=== PATIENT | female | born 1990 | race Caucasian/White ===

== ENCOUNTER 2018-01-05 09:19 | Emergency (ER) | payer MEDICAID, OTHER ==
[2018-01-05] MEDS ORDERED: Acetaminophen TAB* 325 MG PO ONE (10:58)
[2018-01-05] MEDS ORDERED: Ibuprofen TAB* 600 MG PO ONE (11:00)
--- NOTE | 2018-01-05 11:10 | ED ---
Lower Extremity - HPI Summary HPI Summary: This patient is a 27 year old F presenting to [facility] with a chief complaint of right lower leg pain since 04:00 this morning. Patient denies falling. Pt notes that she broke her right tibia on 11/09/17 and is worried she may have reinjured herself by walking without her boot on last night. The patient rates the pain 10 /10 in severity. Symptoms aggravated by putting pressure on her right leg. Symptoms alleviated by nothing. Patient reports left knee pain, swelling to her left ring finger, and rash to her left hand. Pt notes that she cannot remove her ring. Pt takes Wellbutrin and Xanax. - History of Current Complaint Chief Complaint: EDExtremityLower Stated Complaint: RIGHT FOOT INJURY, LEFT KNEE SWEELING , HAND SWELL Hx Obtained From: Patient Hx Last Menstrual Period: 05/08/13 Mechanism Of Injury: Unknown Onset of Pain: Hours, Prior to Arrival Onset/Duration: Still Present Severity Currently: Moderate Pain Intensity: 10 Pain Scale Used: 0-10 Numeric Timing: Constant Location: Is Discrete @ - right lower leg Associated Signs And Symptoms: Positive: Swelling - of left ring finger, Knee Pain - in left knee Aggravating Factor(s): Weight Bearing Alleviating Factor(s): Nothing - Allergies/Home Medications Allergies/Adverse Reactions: Allergies Allergy/AdvReac Type Severity Reaction Status Date / Time bee venom protein (honey bee) Allergy Anaphylatic Verified 01/05/18 11:40 Shock fentanyl Allergy Vomiting Verified 01/05/18 11:40 melon Allergy Severe cant Uncoded 01/05/18 11:40 breathe peanuts Allergy Severe breathing Uncoded 01/05/18 11:40 diff PMH/Surg Hx/FS Hx/Imm Hx Cardiovascular History: Denies: Hx Hypertension Respiratory History: Reports: Hx Asthma History: Reports: Hx Renal Disease - STATES ONE WORKING KIDNEY WORKS ON AND OFF - Surgical History Surgery Procedure, Year, and Place: polyps removed uterine; wisdom teeth; nasal reconstruction - Immunization History Immunizations Up to Date: Yes Infectious Disease History: No Infectious Disease History: Denies: History Other Infectious Disease, Traveled Outside the [place] in Last 30 Days - Social History Alcohol Use: Rare Substance Use Type: Reports: None Smoking Status (MU): Never Smoked Tobacco Review of Systems Negative: Fever, Chills Negative: Photophobia, Blurred Vision Negative: Ear Ache Negative: Chest Pain Negative: Cough Negative: Vomiting, Nausea, Other - negative bloody stool Negative: hematuria Musculoskeletal: Other - right lower leg pain, left knee pain Positive: Other - swelling in left ring finger Positive: Rash - redness in left hand Negative: Headache All Other Systems Reviewed And Are Negative: No Physical Exam - Summary Physical Exam Summary: Appearance: Alert, conversive, nontoxic appearing Skin: Warm, dry, no mottling, rash to dorsum of left hand, no contusions HEENT: EOMI, PERRL, moist mucous membranes Neck: No masses on the neck, supple Respiratory: Clear to auscultation, breath sounds present, no rales, no rhonchi , no wheezes Cardiovascular: RRR, pulses are symmetrical in both lower and upper extremities Abdomen: Soft, non-tender Bowel Sounds: Present Musculoskeletal: No CVA tenderness, no obvious deformity, moving all extremities in a grossly normal manner. Tender to inferior and lateral right lower leg. Tenderness with ROM. Full ROM with right knee. Swelling to left ring finger. Neurological: A&Ox3, CN II-XII Intact, moving all extremities symmetrically Psychiatric: Normal affect and mood Triage Information Reviewed: Yes Vital Signs On Initial Exam: Initial Vitals Temp Pulse Resp BP Pulse Ox 97.5 F 90 16 111/97 97 01/05/18 09:25 01/05/18 09:25 01/05/18 09:25 01/05/18 09:25 01/05/18 09:25 Vital Signs Reviewed: Yes Diagnostics - Vital Signs Vital Signs Temp Pulse Resp BP Pulse Ox 01/05/18 09:25 97.5 F 90 16 111/97 97 - Laboratory Lab Statement: Any lab studies that have been ordered have been reviewed, and results considered in the medical decision making process. - Radiology Right ankle XR Xray Interpretation: No Acute Changes - no acute osseous injury. Dr. Jim has reviewed this report. Radiology Interpretation Completed By: Radiologist Right lower leg XR Xray Interpretation: No Acute Changes - no acute osseous injury. Dr. Jim has reviewed this report. Radiology Interpretation Completed By: Radiologist Re-Evaluation - Re-Evaluation 1st re-eval Re-Evaluation Time: 12:11 Change: Unchanged Comment: Discussed imaging results with patient. Lower Extremity Course/Dx - Course Course Of Treatment: This patient is a 27 year old F reporting right lower leg pain, left knee pain, swelling to her left ring finger, and rash to her left hand. Patient broke her right tibia 11/09/17. Right ankle XR reveals, per radiologist, no acute osseous injury. RLE XR reveals, per radiologist, no acute osseous injury. ED physician has reviewed these radiology reports. In the ED course the patient was given ibuprofen and Tylenol. Patient will be discharged home with follow up from PCP. The patient is agreeable with this plan. - Diagnoses Provider Diagnoses: Ankle sprain Discharge - Sign-Out/Discharge Documenting (check all that apply): Patient Departure - discharge home - Discharge Plan Condition: Stable Disposition: HOME Patient Education Materials: Ankle Sprain (ED) Referrals: No Primary Care Phys,NOPCP [Primary Care Provider] - Additional Instructions: please follow up with your orthopedic surgeon. call for a follow up appt this week. wear the surgical boot as previously instructed. Take tylenol and motrin for pain. - Billing Disposition and Condition Condition: STABLE Disposition: Home - Attestation Statements Document Initiated by Scribe: Yes Documenting Scribe: Nataliia Obrien Provider For Whom Terra[employer] is Documenting (Include Credential): Hoda Jim MD Scribe Attestation: Nataliia Morris, scribed for Hoda Jim MD on 01/05/18 at 1709. Scribe Documentation Reviewed: Yes Provider Attestation: The documentation as recorded by the scribeNataliia accurately reflects the service I personally performed and the decisions made by Hoda adams MD
--- NOTE | 2018-01-05 11:29 | RAD ---
HISTORY: Lower leg pain COMPARISONS: November 20, 2017 VIEWS: 5 , Frontal, lateral, and oblique views of the right ankle with frontal and lateral views of the right foreleg FINDINGS: BONE DENSITY: Normal. BONES: There is no acute displaced fracture. There is a well-corticated bone fragment of the medial malleolus consistent with remote avulsion injury. JOINTS: There is no arthropathy. ALIGNMENT: There is no dislocation. SOFT TISSUES: Unremarkable. OTHER FINDINGS: None. IMPRESSION: NO ACUTE OSSEOUS INJURY. IF SYMPTOMS PERSIST, RECOMMEND REPEAT IMAGING.
[2018-01-05] MEDS ORDERED: predniSONE TAB* 20 MG ONE (11:33)
[2018-01-05] MEDS ORDERED: predniSONE TAB* 20 MG PO ONE (11:33)
[2018-01-05] MEDS ORDERED: diPHENhydraMINE PO* 25 MG PO ONE (11:33)
[2018-01-05] MEDS ORDERED: diPHENhydraMINE PO* 50 MG ONE (11:33)
[2018-01-05 12:37] VITALS: BP 118/87
== END 2018-01-05 12:36 | disposition home or self-care (01) ==
LOC: ED 09:19
DX: S93.401A Sprain of unspecified ligament of right ankle, initial encounter (principal); X58.XXXA Exposure to other specified factors, initial encounter; Y92.9 Unspecified place or not applicable; M25.562 Pain in left knee; M79.89 Other specified soft tissue disorders; R21 Rash and other nonspecific skin eruption; Z91.030 Bee allergy status; Z88.5 Allergy status to narcotic agent; Z91.010 Allergy to peanuts; Z91.018 Allergy to other foods
CPT/HCPCS: 99282; A9270-GY; J7512

== ENCOUNTER 2018-01-07 03:26 | Emergency (ER) | payer OTHER ==
--- NOTE | 2018-01-07 04:10 | ED ---
Adult Trauma - HPI Summary HPI Summary: Pt is a 27 year old F presenting to the ED with a chief complaint of leg pain. She fell down the stairs tripping over her dog, hurting her tibia and is now complaining of knee pain. She went to [facility] who told her there was a possible fracture and then sent her home. She said that they did not take the full x-ray at [facility] and that she wanted an opinion from an MD. - History of Current Complaint Chief Complaint: EDExtremityLower Stated Complaint: FALL Hx Obtained From: Patient Hx Last Menstrual Period: 05/08/13 Mechanism of Injury: Fall Onset/Duration: Started Days Ago, Still Present Onset of Pain: Days Onset Severity: Moderate Current Severity: Moderate Pain Intensity: 10 Pain Scale Used: 0-10 Numeric Location: Extremities - lower extremity Aggravating Factor(s): Movement, Weight Bearing, Ambulation Alleviating Factor(s): Nothing Associated Signs & Symptoms: Positive: Other: - myalgias - Allergy/Home Medications Allergies/Adverse Reactions: Allergies Allergy/AdvReac Type Severity Reaction Status Date / Time bee venom protein (honey bee) Allergy Anaphylatic Verified 01/05/18 11:40 Shock fentanyl Allergy Vomiting Verified 01/05/18 11:40 melon Allergy Severe cant Uncoded 01/05/18 11:40 breathe peanuts Allergy Severe breathing Uncoded 01/05/18 11:40 diff PMH/Surg Hx/FS Hx/Imm Hx Previously Healthy: Yes Cardiovascular History: Denies: Hx Hypertension Respiratory History: Reports: Hx Asthma History: Reports: Hx Renal Disease - STATES ONE WORKING KIDNEY WORKS ON AND OFF - Surgical History Surgery Procedure, Year, and Place: polyps removed uterine; wisdom teeth; nasal reconstruction Infectious Disease History: No Infectious Disease History: Denies: History Other Infectious Disease, Traveled Outside the [place] in Last 30 Days - Family History Known Family History: Negative: Hypertension - Social History Alcohol Use: Rare Substance Use Type: Reports: None Smoking Status (MU): Never Smoked Tobacco Review of Systems Negative: Fever Positive: Myalgia - lower extremity All Other Systems Reviewed And Are Negative: Yes Physical Exam - Summary Physical Exam Summary: Appearance: Well-appearing, Well-nourished, lying in bed comfortable Skin: Warm, dry, contusions over R knee and bruising about the R ankle Eyes: sclera anicteric, no conjunctival pallor ENT: mucous membranes moist Neck: deferred Respiratory: No signs of respiratory distress Cardiovascular: Appears well perfused, pulses are nml Abdomen: deferred Musculoskeletal: Contusions over R knee without significant swelling, no deformity and minimal tenderness. Bruising about the R knee without swelling or consistent tenderness. Neurological: Awake and alert, mentation is normal, speech is fluent and appropriate Psychiatric: affect is normal, does not appear anxious or depressed Triage Information Reviewed: Yes Vital Signs On Initial Exam: Initial Vitals Pulse Pulse Ox 71 97 01/07/18 03:32 01/07/18 03:32 Vital Signs Reviewed: Yes Diagnostics - Vital Signs Vital Signs Temp Pulse Resp BP Pulse Ox 01/07/18 03:42 97.9 F 70 16 124/76 97 01/07/18 03:33 124/76 01/07/18 03:32 71 97 - Laboratory Lab Statement: Any lab studies that have been ordered have been reviewed, and results considered in the medical decision making process. Adult Trauma Course/Dx - Course Course Of Treatment: Pt is a 27 y/o F presenting to the ED looking for a second opinion on her bruises/sustained injuries in R knee and ankle from falling down the stairs. X-ray reports were sent from [facility], they did do films of her left knee and right ankle, and there were no bony injuries. - Diagnoses Provider Diagnoses: Right ankle sprain, Contusion of left knee Discharge - Sign-Out/Discharge Documenting (check all that apply): Patient Departure - Discharge Plan Condition: Good Disposition: HOME Patient Education Materials: Ankle Sprain (ED), Knee Pain (ED) Referrals: Jorge Gonzales MD [Medical Doctor] - Additional Instructions: The xray reports from [facility] are negative for fracture of the left knee and right ankle. You can take OTC pain medication and continues to ice these, but the pain is likely to persist for a week or two. - Billing Disposition and Condition Condition: GOOD Disposition: Home - Attestation Statements Document Initiated by Scribe: Yes Documenting Scribe: Yesenia Romero Provider For Whom Scribe is Documenting (Include Credential): Fco Rodrigues MD. Scribe Attestation: Yesenia Morris, scribed for Fco Rodrigues MD. on 01/07/18 at 0612. Scribe Documentation Reviewed: Yes Provider Attestation: The documentation as recorded by the Yesenia thomas accurately reflects the service I personally performed and the decisions made by me, Fco Rodrigues MD.
[2018-01-07] MEDS ORDERED: Ibuprofen TAB* 400 MG ONE (04:44)
[2018-01-07 04:45] VITALS: BP 118/88
[2018-01-07] MEDS ORDERED: Ibuprofen TAB* 400 MG PO ONE (04:45)
== END 2018-01-07 04:48 | disposition home or self-care (01) ==
LOC: ED 03:26
DX: S93.401A Sprain of unspecified ligament of right ankle, initial encounter (principal); S80.02XA Contusion of left knee, initial encounter; W10.9XXA Fall (on) (from) unspecified stairs and steps, initial encounter; Y92.9 Unspecified place or not applicable; Z91.030 Bee allergy status; Z88.5 Allergy status to narcotic agent; Z91.010 Allergy to peanuts; Z91.018 Allergy to other foods
CPT/HCPCS: 99282; A9270-GY

== ENCOUNTER 2018-02-09 15:32 | Inpatient (IN) | payer OTHER ==
--- NOTE | 2018-02-09 15:52 | ED ---
Psychiatric Complaint - HPI Summary HPI Summary: This patient is a 27 year old F presenting [place] [facility] [place]/o depression. Pt states her uncle yesterday and this has worsened her depression. Patient denies HI and SI. She states she is taking her medications as directed. She has no other complaints at this time. Pt states her suggested she come as last time there was a in the family it didnt go well. - History Of Current Complaint Chief Complaint: EDPsychosocial Time Seen by Provider: 02/09/18 15:42 Hx Obtained From: Patient Hx Last Menstrual Period: 05/08/13 Onset/Duration: Still Present, Worse Since Timing: Constant Severity Initially: Moderate Severity Currently: Moderate Character: Depressed Aggravating Factor(s): Recent Stress Related History: Positive For: Prior Psychiatric Issues Has Suicidal: Denies: Thoughts, With A Plan Has Homicidal: Denies: Thoughts, With A Plan - Allergies/Home Medications Allergies/Adverse Reactions: Allergies Allergy/AdvReac Type Severity Reaction Status Date / Time bee venom protein (honey bee) Allergy Anaphylatic Verified 02/09/18 15:41 Shock fentanyl Allergy Vomiting Verified 02/09/18 15:41 melon Allergy Severe cant Uncoded 02/09/18 15:41 breathe peanuts Allergy Severe breathing Uncoded 02/09/18 15:41 diff PMH/Surg Hx/FS Hx/Imm Hx Cardiovascular History: Denies: Hx Hypertension Respiratory History: Reports: Hx Asthma History: Reports: Hx Renal Disease - STATES ONE WORKING KIDNEY WORKS ON AND OFF Psychiatric History: Reports: Hx Anxiety, Hx Depression, Other Psychiatric Issues/Disorders - OCD - Surgical History Surgery Procedure, Year, and Place: polyps removed uterine; wisdom teeth; nasal reconstruction Infectious Disease History: No Infectious Disease History: Denies: History Other Infectious Disease, Traveled Outside the [place] in Last 30 Days - Family History Known Family History: Negative: Hypertension, Seizure Disorder - Social History Lives: With Family Alcohol Use: Rare Substance Use Type: Reports: None Smoking Status (MU): Never Smoked Tobacco Review of Systems Negative: Fever Positive: Depressed, Other - NEGATIVE SI and HI All Other Systems Reviewed And Are Negative: Yes Physical Exam - Summary Physical Exam Summary: Appearance: Well appearing, no pain distress, depressed affect Skin: warm, dry, reflects adequate perfusion Head/face: normal Eyes: EOMI, WILDER ENT: normal Neck: supple, non-tender Respiratory: CTA, breath sounds present Cardiovascular: RRR, pulses symmetrical Abdomen: non-tender, soft Musculoskeletal: normal, strength/ROM intact Neuro: normal, sensory motor intact, A&Ox3 Triage Information Reviewed: Yes Vital Signs On Initial Exam: Initial Vitals Temp Pulse Resp BP Pulse Ox 97.7 F 87 14 132/80 98 02/09/18 15:36 02/09/18 15:36 02/09/18 15:36 02/09/18 15:36 02/09/18 15:36 Vital Signs Reviewed: Yes Diagnostics - Vital Signs Vital Signs Temp Pulse Resp BP Pulse Ox 02/09/18 15:36 97.7 F 87 14 132/80 98 - Laboratory Result Diagrams: 02/09/18 15:46 02/09/18 15:46 Lab Statement: Any lab studies that have been ordered have been reviewed, and results considered in the medical decision making process. Course/Dx - Course Assessment/Plan: This patient is a 27 year old F presenting to [facility] c/o depression. After MHE by Dr Casanova the patient will be a voluntary admission . Dx substance induced mood disorder. The patient is agreeable with this plan. - Differential Dx/Clinical Impression Differential Diagnosis/HQI/PQRI: Positive: Anxiety, Depression, Suicidal Ideation Provider Diagnosis: Substance induced mood disorder Discharge - Sign-Out/Discharge Documenting (check all that apply): Patient Departure - admitted - Discharge Plan Condition: Fair Disposition[place] [place] Disposition and Condition Condition: FAIR Disposition: Psychiatric [place] [facility] [place] Attestation Statements Document Initiated by Scribe: Yes Documenting Scribe: Erwin Noble Provider For Whom Scribe is Documenting (Include Credential): Aly Stallings MD Scribe Attestation: Erwin Morris , scribed for Aly Stallings MD on 02/09/18 at 2135. Scribe Documentation Reviewed: Yes Provider Attestation: The documentation as recorded by the Erwin thomas accurately reflects the service I personally performed and the decisions made by me, Aly Stallings MD
[2018-02-09 16:01] LABS: ABS Basophils 0.1 10^3/ul (0-0.2); ABS Eosinophils 0.2 10^3/ul (0-0.6); ABS Lymphocytes 1.8 10^3/ul (1.0-4.8); ABS Monocytes 0.4 10^3/ul (0-0.8); ABS Nucleated RBC 0 10^3/ul; Eosinophil % 1.5 % (0-6); Hematocrit 38 % (35-47); Hemoglobin 12.3 g/dl (12.0-16.0); Lymphocyte % 17.3 % (25-47); Mean Corpuscular HGB Conc 33 g/dl (31-36); Mean Corpuscular Hemoglobin 24 pg (27-31); Mean Corpuscular Volume 74 fL (80-97); Mean Platelet Volume 7.5 fL (7.4-10.4); Nucleated Red Blood Cells % 0; Platelet Count 308 10^3/ul (150-450); Red Blood Count 5.07 10^6/ul (4.00-5.40); Red Cell Distribution Width 17 % (10.5-15); White Blood Count 10.4 10^3/ul (3.5-10.8)
--- OUTSIDE RECORDS SUMMARY | 2018-02-09 16:16 | XMS REPORT ---
:1990 External Reference #:[id number] Author Organization [employer] Address [address] [place] [address] [place] [address] Phone [phone] Care Team Providers Name Role Phone Eric Medellin MD Care Team Information Chief Drafter Unavailable Fide Jeong MD Primary Care Physician Unavailable Payers Type Date Identification Numbers Payment Provider Subscriber Commercial Policy Number: [id number] Johnnie Turner PayID: [id number] [address] [place] [phone] Problems Description No Information Family History Date Family Member(s) Problem(s) Comments General Cancer General Diabetes General Hypercholesterolemia Maternal Grandfather Bladder Cancer Social History Type Date Description Comments Lives With Son Lives With Boyfriend 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 Cigarette Use Never Smoked Cigarettes ETOH Use Drinks Alcoholic Beverages Occasionally ETOH Use Denies alcohol use Smoking Patient has never smoked Recreational Drug Use Denies Drug Use Exercise Type/Frequency Exercises regularly Allergies, Adverse Reactions, Alerts Date Description Reaction Status Severity Comments 11/11/2017 Bee Sting active 11/11/2017 Fentanyl Anaphylaxis, Nausea and active Vomiting 11/11/2017 Kiwi active 11/11/2017 Bren active 01/13/2018 Peanut-containing Drug active Products Medications Medication Date Status Form Strength Qnty SIG Indications Ordering Provider Prozac Active Capsules 20mg 90caps 1 bid Eric Medellin MD Zantac 75 Active Tablets 75mg 30tabs take 1 tab Eric Stephenson by mouth braxton Medellin at bedtime Meloxicam Active Tablets 15mg 30tabs 1 PO qd Joreg 011 lashawn Gonzales M.D. Sprintec 28 Active Tablets 0.25-35mg- 28tabs 1 by mouth Dvorah 000 mcg every day MD Rahul Wellbutrin XL Active Tablets ER 150mg 1 by mouth Unknown 000 24HR every day Epipen 2-Ronny Active Solution 0.3mg/0.3M use as Unknown 000 Auto-Injec L directed t Temazepam Active Capsules 30mg Unknown 000 Percocet Hx Tablets 5-325mg 14tabs 1 tab by Eric Scott 018 - mouth Vignesh, every 6 MD 018 hours as needed Benadryl Hx Capsules 25mg one tab by Unknown 000 - mouth at bedtime as 018 needed Tramadol HCL Hx Tablets 50mg 1-2 Unknown 000 - tablets by mouth 018 every 6 hours as needed pain Medications Administered in Office Medication Date Status Form Strength Qnty SIG Indications Ordering Provider Depomedrol Administered Injection Jorge 80MG 010 Manuel Gonzales Vital Signs Date Vital Result Comment 01/13/2018 Height 69 inches 5'9" Weight 256.00 lb Heart Rate 80 /min BP Systolic Recheck 126 mmHg BP Diastolic Recheck 82 mmHg Respiratory Rate 16 /min Body Temperature 98.1 F BMI (Body Mass Index) 37.8 kg/m2 01/06/2018 Height 69 inches 5'9" Heart Rate 77 /min BP Systolic Sitting 112 mmHg BP Diastolic Sitting 70 mmHg Body Temperature 98.3 F O2 % BldC Oximetry 98 % 12/16/2017 Height 69 inches 5'9" Weight 250.00 lb Heart Rate 80 /min BP Systolic Recheck 124 mmHg BP Diastolic Recheck 84 mmHg Respiratory Rate 16 /min Body Temperature 98.0 F BMI (Body Mass Index) 36.9 kg/m2 11/21/2017 Height 69 inches 5'9" Pain Level 5 11/20/2017 Height 69 inches 5'9" 11/11/2017 Height 69 inches 5'9" Weight 215.00 lb Heart Rate 80 /min BP Systolic Recheck 128 mmHg BP Diastolic Recheck 84 mmHg Respiratory Rate 16 /min Body Temperature 97.9 F BMI (Body Mass Index) 31.7 kg/m2 Results Description No Information Procedures Date CPT Code Description Status 11/21/2017 62293 Short Leg Cast Completed 11/20/2017 48181 Short Leg Cast Completed 11/11/2017 42569 Short Leg Cast Completed 02/16/2010 25397 Inject/Drain Joint/Bursa Major W/O US Completed 12/21/2009 24997 Rad Exam; Knee, Ap&L Completed 12/21/2009 31067 Rad Exam; Hip Unilat Completed 12/21/2009 19957 Rad Exam; Pelvis Completed 09/12/2009 09107 ECHO Transthoracic, Real-Time 2D With Doppler And Color Completed Flow Encounters Type Date Location Provider CPT E/M Dx Office Visit 12/16/2017 Orthopedic [facility] Eric Medellin, [id number] 9:15a Of [facility] [place] [id number] Office Visit 11/21/2017 9:30a [facility] Eric Scott 37026 [id number] Of [facility] Medellin MD [id number] Office Visit 11/20/2017 2:00p [place] [address] [id number] Of [facility] Office Visit 11/11/2017 9:00a [facility] Eric Medellin 12909 [id number] Of [facility] [place] [id number] Plan of Care Future Appointment(s):02/10/2018 10:15 am - Eric Medellin MD at [facility] AT Vqbbbfda83/19/2018 8:00 am - Clarissa Kay MD at [facility] at Sthxfyxl73/29/2018 - Eric Medellin [id number] Ot fracture of r low leg, subs for clos fx w routn healFollow up: Follow up: 4 [id number] Contusion of left knee, initial [id number] Sprain of unspecified ligament of right ankle, init adutkrB97.671 Pain in right foot
--- OUTSIDE RECORDS SUMMARY | 2018-02-09 16:16 | XMS REPORT ---
:1990 External Reference #:[id number] Author Organization [employer] Address [address] [place] [address] [place] [address] Phone [phone] Care Team Providers Name Role Phone Eric Medellin MD Care Team Information Director Of Contracts Unavailable Fide Jeong MD Primary Care Physician Unavailable Payers Type Date Identification Numbers Payment Provider Subscriber Commercial Policy Number: [id number] Johnnie Turner PayID: [id number] [address] [place] [phone] Problems Description No Information Family History Date [...] Active Tablets 15mg 30tabs 1 PO qd Jorge 011 lashawn Gonzales M.D. Sprintec 28 Active [...] Procedures Date CPT Code Description Status 11/21/2017 92696 Short Leg Cast Completed 11/20/2017 43153 Short Leg Cast Completed 11/11/2017 35465 Short Leg Cast Completed 02/16/2010 85552 Inject/Drain Joint/Bursa Major W/O US Completed 12/21/2009 77717 Rad Exam; Knee, Ap&L Completed 12/21/2009 48572 Rad Exam; Hip Unilat Completed 12/21/2009 76656 Rad Exam; Pelvis Completed 09/12/2009 94900 ECHO Transthoracic, Real-Time 2D With Doppler And Color Completed Flow Encounters Type Date Location Provider CPT E/M Dx Office Visit 12/16/2017 Orth[facility] Eric Medellin, 49006 [id number] 9:15a Of [facility] [place] [id number] Office Visit 11/21/2017 9:30a [facility] Eric Scott 88847 [id number] Of [facility] Medellin MD [id number] Office Visit 11/20/2017 2:00p [place] [address] [id number] Of [facility] Office Visit 11/11/2017 9:00a [facility] Eric Medellin 80392 [id number] Of [facility] [place] [id number] Plan of Care Future Appointment(s):02/03/2018 8:00 am - Clarissa Kay MD at [facility] at Svpkkiqv23/29/2018 - Eric Medellin [id number] Oth fracture of r low leg, subs for clos fx w routn healFollow up:Follow up: 4 qzkeqL83.02xA Contusion of left knee, initial gqquogujgE37.401A Sprain of unspecified ligament of right ankle, init kmrkygR53.671 Pain in right foot
[2018-02-09 16:17] LABS: EGFR Non-African American 85.5 (>60)
[2018-02-09 16:34] LABS: Urine Appearance Cloudy; Urine Blood 1+ (Negative); Urine Color Amber; Urine Ketones Negative (Negative); Urine Protein Negative (Negative); Urine Red Blood Cell 1+(3-5/hpf) (Absent); Urine Specific Gravity 1.013 (1.010-1.030); Urine Urobilinogen Negative (Negative); Urine White Blood Cell 3+(>20/hpf) (Absent)
[2018-02-09] MEDS ORDERED: Sulfamethox/Trimethoprim DS 800/160* TAB PO ONE (16:45)
[2018-02-09] MEDS ORDERED: Al Hydrox/Mg Hydrox/Simet LIQ* 30 ML UDC PO PRN (21:23)
[2018-02-09] MEDS ORDERED: risperiDONE TAB* 2 MG PO SCH (22:00)
[2018-02-09] MEDS: Acetaminophen TAB* 325 MG PO PRN (22:12)
[2018-02-10] MEDS ORDERED: BuPROPion XL* 150 MG TAB.XL PO SCH (09:00)
[2018-02-10] MEDS ORDERED: Pneumococcal *Vac Polyvalent 0.5 ML VIAL IM ONE (09:00)
[2018-02-10] MEDS ORDERED: Multivitamins/Minerals TAB PO SCH (09:00)
[2018-02-10] MEDS: FLUoxetine CAP* 20 MG PO SCH (10:56)
[2018-02-10] MEDS: Sulfamethox/Trimethoprim DS 800/160* TAB PO SCH ×2 (10:56→10:58)
[2018-02-10] MEDS: Acetaminophen TAB* 325 MG PO PRN ×2 (12:24→20:27)
[2018-02-10] MEDS ORDERED: clonazePAM TAB(*) 1 MG PO ONE (14:45)
[2018-02-10] MEDS ORDERED: Azithromycin TAB* 250 MG PO ONE (17:00)
[2018-02-10] MEDS: Azithromycin TAB* 250 MG PO SCH (19:09)
[2018-02-10] MEDS: clonazePAM TAB(*) 1 MG PO SCH (20:27)
[2018-02-10] MEDS: QUEtiapine TAB* 100 MG PO SCH (20:27)
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
[2018-02-10] MEDS ORDERED: Cefdinir 250mg/5 ml* 100 ml ORAL.SUSP PO SCH (21:00)
--- NOTE | 2018-02-10 21:16 | CONS ---
CC: Dr. Jeong; Dr. Casanova from Psychiatry * CONSULTATION REPORT: DATE OF CONSULT: 02/10/18. PRIMARY CARE PROVIDER: Dr. Fide Jeong. REASON FOR CONSULTATION: Hemoptysis. HISTORY OF PRESENT ILLNESS: Melisa Turner is a 27-year-old white female with a history of obesity and polycystic ovarian syndrome, who has been hospitalized at our mental health unit since 02/09/18 for suicidal ideation and depression. The patient was diagnosed with UTI on admission and placed on Bactrim. Today, she started complaining of sore throat and cough and she noted that couple of times where she was spitting up when coughing, her sputum was tinged. For that , the psychiatrist ordered a portable chest x-ray and asked the Medicine Service to come in and evaluate the patient. The patient stated that apart from the sore throat, she had been tired. She had been coughing occasionally, bringing up clear sputum tinged with a little bit of pink. She has had no other complaints. She has some abdominal cramping that is lower abdominal cramping due to ongoing menses. She denies any urinary symptoms of frequency, urgency or burning with urination. She currently feels tired, but she still complains of being depressed. She denies current suicidal ideation. PAST MEDICAL HISTORY: 1. History of depression with anxiety. 2. History of ovarian cyst. 3. History of asthma. 4. History of polycystic ovarian syndrome. 5. Uterine polyps. 6. Nasal reconstruction. ALLERGIES: BEES, BEE VENOM, FENTANYL, PEANUTS. FAMILY HISTORY: Father is unknown. Mother is healthy. SOCIAL HISTORY: The patient occasionally drinks alcohol. 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 She has a [id number] baby. REVIEW OF SYSTEMS: On review of systems, please see history of present illness. All the remaining 12 systems were reviewed with the patient and were otherwise negative. PHYSICAL EXAM: Blood pressure of 101/46, heart rate 69 and regular, respiratory rate 16, oxygen saturation 93% on room air, temperature 98.8. General: The patient is a very pleasant 27-year-old white female with a BMI of 34. The patient is in no acute distress. Alert, awake, oriented x3. HEENT: Head: Atraumatic, normocephalic. Eyes: Pupils are equal, reactive to light and accommodation. Oropharynx with injected tonsils and pharyngeal arch. No exudates. Neck: Supple. No JVD. No bruit bilaterally. Nontender to palpation. Respiratory: Clear to auscultation bilaterally. Cardiovascular: Regular rate and rhythm. No murmur. Abdomen: Soft and nontender. Bowel sounds are present in all 4 quadrants. Extremities: There is no edema. Pulses are +2 bilaterally. There is no clubbing and no cyanosis. On neuro evaluation , speech clear. Cranial nerves II through XII grossly intact. Motor strength is 5/5 bilaterally. DIAGNOSTIC STUDIES/LAB DATA: Laboratory data last obtained on 02/09/18 shows a sodium of 138, potassium 4.2, chloride 105, carbon dioxide 28, BUN 4, creatinine 0.81. Liver function tests are unremarkable. Hemoglobin A1c of 4.9. TSH is 1.77. Beta HCG below detectable. CBC: White blood cell count of 10.4, hemoglobin 12.3, hematocrit of 38, MCV of 74, and platelets of 308. Urinalysis is positive for wbc's, rbc's, and esterase, and +1 bacteria and turning out to have gram-positive bacilli on cultures of 100,000 colonies. The patient's portable chest x-ray was read by the radiologist as "there may be an early right upper lobe pneumonia noted." HOSPITALIZATION COURSE: 1. Small amount of hemoptysis is likely related to bronchitis and possibility of early pneumonia as noted on the x-ray, though the patient clinically does not have symptoms of pneumonia and on an auscultation of her lungs, she is grossly clear. At this point, I will place her on azithromycin and cefdinir orally and stop the patient's Bactrim. The third generation cephalosporin should cover her gram- negative bacterial UTI. Also, the patient could have asymptomatic bacteria since she has had no symptoms of UTI. 2. In regards to the patient's current problems with suicidal ideation, and depression and anxiety, the patient is under the care of the psychiatrist team. She is currently placed on Wellbutrin, clonazepam, fluoxetine, and Seroquel, which is going to be continued as per psychiatrist team. I anticipate that the patient will improve on those antibiotics and she can follow up as outpatient after discharge from mental health unit, but if she needs followup, please let our service know and we will see the patient on an as needed basis from now on. Thank you very much for allowing me to see your patient in consultation. We will follow on an as needed basis. [id number]/[facility] #: [id number] DARIEL
[2018-02-11] MEDS: clonazePAM TAB(*) 1 MG PO SCH ×2 (08:07→20:40)
[2018-02-11] MEDS: CEFDINIR 300 MG PO SCH ×2 (08:07→20:40)
[2018-02-11] MEDS: BuPROPion XL* 150 MG TAB.XL PO SCH (08:07)
[2018-02-11] MEDS: FLUoxetine CAP* 20 MG PO SCH (08:07)
--- NOTE | 2018-02-11 12:25 | PN ---
Subjective - Subjective Service Type: 86791 Hosp care 25 min moderate complexity Subjective: Patient reports improved mood and energy. She denies SI or SIB urges. She presents as euthymic with full range of affect, along with improvement in latencies and spontaneous speech. She inquires about her son visiting with her and automobile and property underwriter agrees. Her family is currently visiting in comfort room. Assessment - Assessment Merits Inpatient Hospitalization: For Immediate Safety, For Stabilization Inpatient DSM-V Dx: F33.1 Clinical Impression: 27yo wf with history of major depressive d/o, OCD and TBI who presented to ED with c/o increased depression and SI. She reports symptoms of MDD were exacerbated when she was notified about her uncle's . Patient merits hospitalization for immediate safety and stabilization. MHU: Problem List - Patient Problems (1) Major depressive disorder Current Visit: Yes Status: Chronic Priority: High Code(s): F32.9 - MAJOR DEPRESSIVE DISORDER, SINGLE EPISODE, UNSPECIFIED SNOMED Code(s): 630198951 Comment: titrate medications to efficacy Plan - Plan Treatment Plan: Name: DANIELLE ARAUJO Birthdate: 1990 [id number] continue acute intensive psychiatric treatment. may decrease to q30min observation and allow staff pass. appreciate consult from hospitalist. continue current medications. discharge planning to include family and outpatient providers Continued Medication Management: Start Medication Medications: Current Medications Acetaminophen (Tylenol Tab*) 650 mg PO Q4H PRN PRN Reason: PAIN OR TEMP >101 Last Admin: 02/10/18 20:27 Dose: 650 mg Al Hydrox/Mg Hydrox/Simethicone (Maalox Plus*) 30 ml PO Q4H PRN PRN Reason: INDIGESTION Azithromycin (Zithromax Tab*) 250 mg PO DAILY@1700 [facility] Stop: 02/13/18 17:01 Last Admin: 02/10/18 19:09 Dose: 250 mg Bupropion HCl (Wellbutrin Xl *) 300 mg PO DAILY [facility] Last Admin: 02/11/18 08:07 Dose: 300 mg Cefdinir (Cefdinir Cap (Nf)) 300 mg PO BID [facility] Last Admin: 02/11/18 08:07 Dose: 300 mg Clonazepam (Klonopin Tab(*)) 1 mg PO BID [facility] Last Admin: 02/11/18 08:07 Dose: 1 mg Fluoxetine HCl (Prozac Cap*) 40 mg PO DAILY [facility] Last Admin: 02/11/18 08:07 Dose: 40 mg Multivitamins/Minerals (Theragran/Minerals Tab*) 1 tab PO DAILY@1200 [facility] Quetiapine Fumarate (Seroquel Tab*) 100 mg PO BEDTIME [facility] Last Admin: 02/10/18 20:27 Dose: 100 mg - Discharge Plan Discharge Plan: Outpatient Follow Up Outpatient Program: Private Clinician(s) - Dr Grayson Benavides
[2018-02-11] MEDS: Multivitamins/Minerals TAB PO SCH (13:13)
[2018-02-11] MEDS: Azithromycin TAB* 250 MG PO SCH (16:53)
[2018-02-11] MEDS: QUEtiapine TAB* 100 MG PO SCH (20:41)
[2018-02-12] MEDS: FLUoxetine CAP* 20 MG PO SCH (08:53)
[2018-02-12] MEDS: CEFDINIR 300 MG PO SCH (08:53)
[2018-02-12] MEDS: clonazePAM TAB(*) 1 MG PO SCH (08:54)
[2018-02-12] MEDS: BuPROPion XL* 150 MG TAB.XL PO SCH (08:54)
[2018-02-12 10:30] VITALS: BP 119/67
[2018-02-12] MEDS: Multivitamins/Minerals TAB PO SCH (11:10)
--- NOTE | 2018-02-13 05:34 | DS ---
CC: Dr. Grayson Benavides; [facility]; Dr. Fide Jeong * DISCHARGE SUMMARY: DATE OF ADMISSION: 02/09/18 DATE OF DISCHARGE: 02/12/18 SUPERVISING PSYCHIATRIST: Dr. Neo Duron. * (DICTATED BY MAYDA CHOI NP ) DISCHARGE DIAGNOSES: 1. Major depressive disorder with anxious distress. 2. Bronchitis. CONDITION AT THE TIME OF DISCHARGE: Improved. The patient is euthymic with bright affect. She is well related. She denies suicidal ideation. She reports much improvement in mood and anxiety. She has tolerated medication changes very well and states understanding of prescribed use. She expresses desire to be discharged. This writer technical publications has spoken with her and her mother , who are all in agreement with discharge plan. MENTAL STATUS EXAM: The patient is a 27-year-old white female, who appears the stated age. She is adequately groomed wearing her own clothing. Her hair is disheveled and she states that she is looking forward to showering in her own home. The patient is alert and oriented x3. Eye contact is good. Speech is soft, articulate, and normal volume. Mood is euthymic with bright affect. No abnormal psychomotor activity noted. Thought process is logical, goal directed , and coherent. Thought content is negative for suicidal ideation or passive wish. She denies AH, VH, or delusions. Insight and judgment are good in that she has participated fully in intensive psychiatric treatment. Fund of knowledge is excellent. INSTRUCTIONS TO BE GIVEN TO PATIENT BY NURSING STAFF: A. Medications: 1. Azithromycin 250 mg p.o. daily x2 more days. 2. Bupropion XL 300 mg p.o. daily. 3. Cefdinir 300 mg p.o. b.i.d., quantity 7. 4. Clonazepam 1 mg p.o. t.i.d. p.r.n. anxiety, MDD 3 tabs. 5. Quetiapine 200 mg p.o. q.h.s. The above prescriptions were electronically prescribed to the patient's pharmacy with 1 week's supply. B. Diet is regular. C. Activity. Ambulation as tolerated. There are no pending labs or diagnostic studies. Tobacco cessation is not applicable as the patient is a nonsmoker. D. Followup care. The patient will follow up with [facility] and has an intake appointment this Saturday at 10:30 a.m. She will follow up with outpatient psychiatrist, Dr. Grayson Benavides, and she has an appointment already scheduled. She can follow up with her primary care provider as needed. E. Substance use followup is not applicable. HOSPITAL COURSE: Part A: Reason for admission: The patient presented to the emergency department with reports of increased depression, suicidal ideation, and exacerbation related to recent of a close family member. She was admitted to adult behavioral services unit on a voluntary status, full code status, and placed on 15-minute checks for safety initially. While in the emergency department, she started treatment for urinary tract infection with Bactrim. Part B: Psychiatric treatment rendered. As stated above, the patient was admitted to adult behavioral services unit on a voluntary status. She reported hemoptysis and a chest x-ray was obtained, which showed questionable pneumonia. Hospitalist consult was requested and the patient was seen by Dr. Chatterjee. She changed the antibiotic from Bactrim to azithromycin and cefdinir. The patient participated fully in interview with treatment team. She was an excellent historian and knowledgeable about her history of psychiatric treatment. She was receptive to suggestions for medication changes and tolerated these well. We increased bupropion XL to 300 mg daily and trialed quetiapine for the patient's complaints of insomnia. She reported much efficacy with these 2 changes. We discussed changing benzodiazepine use to longer acting medication i.e., clonazepam. The patient tolerated this well. She stated understanding of risks for rebound anxiety and withdrawal seizures with alprazolam. She reported feeling improvement and longer lasting effect on anxiety with clonazepam. She is encouraged to utilize this sparingly and we discussed risks of long-term use of benzodiazepines. The patient reported much improvement in mood and anxiety. She denied suicidal ideation. Her family visited along with her 10-month old son. Positive interactions noted. Family members gave collateral information denoting patient's improvement. Generally, Ms. Vincent was a pleasure to treat and we hope that she does well. She is encouraged to call with any questions or concerns after discharge. She states agreement with discharge plan. MAYDA CHOI NP [id number]/[facility] #: [id number] [facility] HOSPITALJesús
== END 2018-02-12 11:30 | disposition home or self-care (01) | DRG 751 ==
LOC: ED 15:32 → BSU 19:06
PROVIDERS: ADMIT Psychiatry & Neurology Psychiatry; ATTEND Psychiatry & Neurology Psychiatry
DX: F33.1 Major depressive disorder, recurrent, moderate (principal); N39.0 Urinary tract infection, site not specified; R45.851 Suicidal ideations; F41.8 Other specified anxiety disorders; J40 Bronchitis, not specified as acute or chronic; B96.20 Unspecified Escherichia coli [E. coli] as the cause of diseases classified elsewhere; E28.2 Polycystic ovarian syndrome; F42.9 Obsessive-compulsive disorder, unspecified; Z87.820 Personal history of traumatic brain injury; Z79.3 Long term (current) use of hormonal contraceptives; Z79.899 Other long term (current) drug therapy; Z81.1 Family history of alcohol abuse and dependence; Z81.8 Family history of other mental and behavioral disorders; Z88.8 Allergy status to other drugs, medicaments and biological substances; Z91.030 Bee allergy status; Z91.010 Allergy to peanuts
CPT/HCPCS: 36415; 71046; 80053; 80061; 80307; 80320; 80329; 81003; 81015; 83036; 84443; 84702; 85025; 87077; 87086; 87186; 90732; 99222; 99232; 99284; A9270-GY; G0480

== ENCOUNTER 2018-02-22 10:48 | Emergency (ER) | payer OTHER ==
--- OUTSIDE RECORDS SUMMARY | 2018-02-22 11:05 | XMS REPORT | Continuity of Care Document ---
:1990 External Reference #:[id number] Author Name Jocy Webber Care Team Providers Name Role Phone Eric Medellin MD Care Team Information Porcelain Technician Unavailable Fide Jeong MD Primary Care Physician Unavailable Payers Type Date Identification Numbers Payment Provider Subscriber Expires: 2017 Policy Number: [id number] Medicaid Melisa Turner Group Name: 1 1 [address] PayID: [id number] [place] [address] Effective: 2017 Policy Number: [id number] [place] Melisa Turner Group Number: [id number] [address] PayID: [id number] [place] [address] Advance Directives Description No Information Available Problems Description No Information Family History Date Family Member(s) Problem(s) Comments General Cancer General Diabetes General Hypercholesterolemia Maternal Grandfather Bladder Cancer Social History Type Date Description Comments Sex Unknown Lives With Son Lives With Boyfriend 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 Tobacco Use Start: Unknown Never Smoked Cigarettes Smoking Status Reviewed: 02/13/18 Never Smoked Cigarettes ETOH Use Drinks Alcoholic Beverages Occasionally ETOH Use Denies alcohol use Tobacco Use Start: Unknown Patient has never smoked Recreational Drug Use Denies Drug Use Exercise Type/Frequency Exercises regularly Allergies, Adverse Reactions, Alerts Date Description Reaction Status Severity Comments 11/11/2017 Bee Sting Active 11/11/2017 Fentanyl Anaphylaxis, Nausea and Active Vomiting 11/11/2017 Kiwi Active 11/11/2017 Bren Active 01/13/2018 Peanut-containing Drug Active Products Medications Medication Date Status Form Strength Qnty SIG Indications Ordering Provider Meloxicam Active Tablets 15mg 30tabs 1 PO qd Jorge 011 lashawn Gonzales M.D. Sprintec 28 Active Tablets 0.25-35mg- 28tabs 1 by mouth Dvorah 000 mcg every day MD Rahul Wellbutrin XL Active Tablets ER 150mg 1 by mouth Unknown 000 24HR every day Epipen 2-Ronny Active Solution 0.3mg/0.3M use as Unknown 000 Auto-Injec L directed t Prozac Active Capsules 20mg 1 bid Unknown 000 Zantac 75 Active Tablets 75mg take 1 tab Unknown 000 by mouth at at bedtime Temazepam Active Capsules 30mg Unknown 000 Percocet [...] Administered Injection Jorge 80MG 010 Manuel Gonzales Immunizations Description No Information Available Vital Signs Date Vital Result Comment 02/17/2018 8:16am Height 69 inches 5'9" Weight 252.12 lb clothes and shoes on Heart Rate 98 /min BP Systolic Sitting 122 mmHg BP Diastolic Sitting 78 mmHg Body Temperature 98.0 F O2 % BldC Oximetry 98 % BMI (Body Mass Index) 37.2 kg/m2 01/13/2018 7:33am Height 69 inches 5'9" Weight 256.00 lb Heart Rate 80 /min BP Systolic Recheck 126 mmHg BP Diastolic Recheck 82 mmHg Respiratory Rate 16 /min Body Temperature 98.1 F BMI (Body Mass Index) 37.8 kg/m2 01/06/2018 11:23am Height 69 inches 5'9" Heart Rate 77 /min BP Systolic Sitting 112 mmHg BP Diastolic Sitting 70 mmHg Body Temperature 98.3 F O2 % BldC Oximetry 98 % 12/16/2017 9:40am Height 69 inches 5'9" Weight 250.00 lb Heart Rate 80 /min BP Systolic Recheck 124 mmHg BP Diastolic Recheck 84 mmHg Respiratory Rate 16 /min Body Temperature 98.0 F BMI (Body Mass Index) 36.9 kg/m2 11/21/2017 10:09am Height 69 inches 5'9" Pain Level 5 11/20/2017 2:18pm Height 69 inches 5'9" 11/11/2017 9:27am Height 69 inches 5'9" Weight 215.00 lb Heart Rate 80 /min BP Systolic Recheck 128 mmHg BP Diastolic Recheck 84 mmHg Respiratory Rate 16 /min Body Temperature 97.9 F BMI (Body Mass Index) 31.7 kg/m2 Results Description No Information Available Procedures Date Code Description Status 11/21/2017 15813 Short Leg Cast Completed 11/20/2017 80499 Short Leg Cast Completed 11/11/2017 42693 Short Leg Cast Completed 02/16/2010 72395 Inject/Drain Joint/Bursa Major W/O US Completed 12/21/2009 56248 Rad Exam; Knee, Ap&L Completed 12/21/2009 59585 Rad Exam; Hip Unilat Completed 12/21/2009 71475 Rad Exam; Pelvis Completed 09/12/2009 38206 ECHO Transthoracic, Real-Time 2D With Doppler And Color Completed Flow Encounters Type Date Location Provider Dx Diagnosis Office Visit 01/13/2018 Orthopedic Eric Scott S82.891D Oth fracture of r 7:45a [facility] AT MD Vignesh low leg, subs for [place] clos fx w routn heal S80.02xA Contusion of left knee, initial encounter S93.401A Sprain of unspecified ligament of right ankle, init encntr M79.671 Pain in right foot S93.601A Unspecified sprain of right foot, initial encounter Office Visit 01/06/2018 11:30a [facility] Clar[facility] Kay, E28.2 Polycystic [facility] braxton MCLAUGHLIN ovarian syndrome [place] Z11.51 Encounter for screening for human papillomavirus (HPV) Z12.4 Encounter for screening for malignant neoplasm of cervix Office Visit 12/16/2017 9:15a Orthopedic Eric Scott S82.144D [facility] Medellin MD bicondylar fx r AT [place] tibia, subs for clos fx w routn heal S82.891D Oth fracture of r low leg, subs for clos fx w routn heal Office Visit 11/21/2017 9:30a Orthopedic Eric Scott S82.144D [facility] MD Vignesh bicondylar fx r C.M.A. tibia, subs for clos fx w routn heal S82.891D Oth fracture of r low leg, subs for clos fx w routn heal Office Visit 11/20/2017 2:00p Orthopedic Mesfin Jackson, S82.301A Unsp fracture Services Of of lower end C.M.A. of right tibia, init for clos fx Office Visit 11/11/2017 9:00a Orthopedic Eric Scott S82.301A Unsp fracture [facility] Medellin MD of lower end AT [place] of right tibia, init for clos fx S82.891A Oth fracture of right lower leg, init for clos fx Plan of Treatment 02/17/2018 - Clarissa Kay MDN83.202 Unspecified ovarian cyst, left sideNew Labs:CBC W/Auto Diff, Ordered: 02/17/18New Xrays:US Transvaginal, Ordered: 02/17Comments:Rec continue Sprintec one tab daily despite any BTB. Reviewed DDx ovarian cysts. Rec ER if pain becomes very strong or if dev heavy/persistent VB.Follow up:Appt with me after March 2018 sonogram.
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
[2018-02-22] MEDS ORDERED: Ondansetron INJ* 2 MG/ML VIAL IV ONE (11:27)
[2018-02-22] MEDS ORDERED: HYDROmorphone INJ1* 1 MG/ML SYRINGE IV SLOW PU ONE (11:27)
[2018-02-22 12:22] LABS: ABS Basophils 0.1 10^3/ul (0-0.2); ABS Eosinophils 0.1 10^3/ul (0-0.6); ABS Lymphocytes 1.9 10^3/ul (1.0-4.8); ABS Monocytes 0.4 10^3/ul (0-0.8); ABS Neutrophils 6.3 10^3/ul (1.5-7.7); ABS Nucleated RBC 0 10^3/ul; Eosinophil % 1.4 %; Hematocrit 40 % (35-47); Hemoglobin 12.6 g/dl (12.0-16.0); Lymphocyte % 21.5 %; Mean Corpuscular HGB Conc 32 g/dl (31-36); Mean Corpuscular Hemoglobin 24 pg (27-31); Mean Corpuscular Volume 74 fL (80-97); Mean Platelet Volume 7.5 fL (7.4-10.4); Nucleated Red Blood Cells % 0; Platelet Count 280 10^3/ul (150-450); Red Blood Count 5.36 10^6/ul (4.00-5.40); Red Cell Distribution Width 16 % (10.5-15); White Blood Count 8.8 10^3/ul (3.5-10.8)
[2018-02-22 12:47] LABS: EGFR Non-African American 84.3 (>60)
[2018-02-22 13:38] VITALS: BP 122/87
== END 2018-02-22 13:45 | disposition home or self-care (01) ==
LOC: ED 10:48
DX: N83.202 Unspecified ovarian cyst, left side (principal); R11.2 Nausea with vomiting, unspecified; Z91.030 Bee allergy status; Z88.5 Allergy status to narcotic agent; Z91.010 Allergy to peanuts; Z91.018 Allergy to other foods
CPT/HCPCS: 36415; 76830; 80053; 83605; 84702; 85025; 86140; 96374; 96375; 99283; J1170; J2405

== ENCOUNTER 2018-04-23 16:54 | Emergency (ER) | payer OTHER ==
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
[2018-04-23] MEDS ORDERED: NS 0.9% 1000 ML** 1,000 ML IV ONE (18:07)
[2018-04-23] MEDS ORDERED: Ondansetron INJ* 2 MG/ML VIAL IV ONE (18:07)
[2018-04-23 18:33] LABS: Urine Appearance Cloudy; Urine Bacteria 1+ (Absent); Urine Bilirubin Negative (Negative); Urine Blood Negative (Negative); Urine Color Yellow; Urine Glucose Negative (Negative); Urine Ketones Negative (Negative); Urine Nitrite Positive (Negative); Urine Protein Negative (Negative); Urine Red Blood Cell 1+(3-5/hpf) (Absent); Urine Specific Gravity 1.016 (1.010-1.030); Urine Squamous Epithelial Cell Present (Absent); Urine Urobilinogen Negative (Negative); Urine White Blood Cell 3+(>20/hpf) (Absent)
[2018-04-23 18:56] LABS: ABS Basophils 0.1 10^3/ul (0-0.2); ABS Eosinophils 0.2 10^3/ul (0-0.6); ABS Lymphocytes 2.2 10^3/ul (1.0-4.8); ABS Monocytes 0.6 10^3/ul (0-0.8); ABS Neutrophils 5.4 10^3/ul (1.5-7.7); ABS Nucleated RBC 0 10^3/ul; Hematocrit 37 % (35-47); Hemoglobin 11.9 g/dl (12.0-16.0); Lymphocyte % 26.1 %; Mean Corpuscular HGB Conc 32 g/dl (31-36); Mean Corpuscular Hemoglobin 24 pg (27-31); Mean Corpuscular Volume 75 fL (80-97); Mean Platelet Volume 7.9 fL (7.4-10.4); Nucleated Red Blood Cells % 0.1; Platelet Count 215 10^3/ul (150-450); Red Blood Count 4.93 10^6/ul (4.00-5.40); Red Cell Distribution Width 17 % (10.5-15); White Blood Count 8.4 10^3/ul (3.5-10.8)
[2018-04-23 19:16] LABS: Albumin 3.6 g/dL (3.2-5.2); Anion Gap 5 mmol/L (2-11); CO2 Carbon Dioxide 28 mmol/L (22-32); Calcium 8.4 mg/dL (8.6-10.3); Chloride 109 mmol/L (101-111); Magnesium 1.8 mg/dL (1.9-2.7); Potassium 3.8 mmol/L (3.5-5.0); Sodium 142 mmol/L (135-145)
[2018-04-23 19:22] LABS: ALT 30 U/L (7-52); AST 16 U/L (13-39); Albumin/Globulin Ratio 1.2 (1-3); Alkaline Phosphatase 79 U/L (34-104); BUN/Creatinine Ratio 9.5 (8-20); Blood Urea Nitrogen 7 mg/dL (6-24); C Reactive Protein 16.28 mg/L (<8.01); Creatine Kinase 53 U/L (10-223); EGFR African American 113.9 (>60); EGFR Non-African American 94.1 (>60); Glucose 84 mg/dL (70-100); Total Protein 6.6 g/dL (6.4-8.9)
[2018-04-23 19:26] LABS: HCG Pregnancy < 0.60 mIU/mL
[2018-04-23 19:34] LABS: Barbiturates Urine Screen None Detected (None Detect); Benzodiazepine Urine Screen Presumptive Positive (None Detect); Urine Cannabinoids Screen Presumptive Positive (None Detect)
[2018-04-23] MEDS ORDERED: Iodixanol* (CONTRAST) 320 MG/ML 100 ML SDV IV ONE (19:42)
[2018-04-23] MEDS ORDERED: Ciprofloxacin 200mg IVPREMIX(* 200 MG/100 ML BAG IV ONE (20:27)
[2018-04-23 22:05] VITALS: BP 132/79
== END 2018-04-23 22:10 | disposition home or self-care (01) ==
LOC: ED 16:54
DX: N39.0 Urinary tract infection, site not specified (principal)
CPT/HCPCS: 36415; 74177; 80053; 80307; 81003; 81015; 82550; 83605; 83690; 83735; 84702; 85025; 86140; 87077; 87086; 87186; 93005; 96361; 96374; 96375; 99284; J0744; J2405; Q9967

== ENCOUNTER 2018-04-29 11:42 | Emergency (ER) | payer OTHER ==
[2018-04-29] MEDS ORDERED: Nicotine Inhaler* 10 MG AMP INH PRN (11:58)
[2018-04-29 12:13] LABS: ABS Basophils 0.1 10^3/ul (0-0.2); ABS Eosinophils 0.2 10^3/ul (0-0.6); ABS Monocytes 0.5 10^3/ul (0-0.8); ABS Neutrophils 4.8 10^3/ul (1.5-7.7); ABS Nucleated RBC 0 10^3/ul; Eosinophil % 2.2 %; Hematocrit 42 % (35-47); Hemoglobin 13.5 g/dl (12.0-16.0); Lymphocyte % 26.1 %; Mean Corpuscular HGB Conc 33 g/dl (31-36); Mean Corpuscular Hemoglobin 24 pg (27-31); Mean Corpuscular Volume 75 fL (80-97); Mean Platelet Volume 7.5 fL (7.4-10.4); Nucleated Red Blood Cells % 0; Platelet Count 255 10^3/ul (150-450); Red Blood Count 5.53 10^6/ul (4.00-5.40); Red Cell Distribution Width 16 % (10.5-15); White Blood Count 7.6 10^3/ul (3.5-10.8)
[2018-04-29 12:33] LABS: ALT 30 U/L (7-52); AST 37 U/L (13-39); Albumin/Globulin Ratio 1.1 (1-3); Alkaline Phosphatase 108 U/L (34-104); Anion Gap 7 mmol/L (2-11); BUN/Creatinine Ratio 11.1 (8-20); Blood Urea Nitrogen 8 mg/dL (6-24); CO2 Carbon Dioxide 27 mmol/L (22-32); Calcium 9.8 mg/dL (8.6-10.3); Chloride 103 mmol/L (101-111); EGFR African American 117.6 (>60); EGFR Non-African American 97.2 (>60); Globulin 3.8 g/dL (2-4); Glucose 99 mg/dL (70-100); Potassium 4.3 mmol/L (3.5-5.0); Sodium 137 mmol/L (135-145); Total Protein 7.8 g/dL (6.4-8.9)
[2018-04-29 12:38] LABS: HCG Pregnancy < 0.60 mIU/mL
[2018-04-29 12:50] LABS: Acetaminophen < 15 mcg/mL; Alcohol < 10 mg/dL (<10); Salicylate < 2.50 mg/dL (<30)
[2018-04-29 13:00] LABS: Urine Appearance Cloudy; Urine Bilirubin Negative (Negative); Urine Blood Negative (Negative); Urine Color Yellow; Urine Glucose Negative (Negative); Urine Ketones Negative (Negative); Urine Nitrite Negative (Negative); Urine Protein Negative (Negative); Urine Specific Gravity 1.005 (1.010-1.030); Urine Urobilinogen Negative (Negative)
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
[2018-04-29 13:05] LABS: TSH (Thyroid Stimulating Horm) 1.07 mcIU/mL (0.34-5.60)
[2018-04-29 13:22] LABS: Barbiturates Urine Screen None Detected (None Detect); Benzodiazepine Urine Screen Presumptive Positive (None Detect); Urine Cannabinoids Screen Presumptive Positive (None Detect)
[2018-04-29 16:09] VITALS: BP 124/68
== END 2018-04-29 16:07 | disposition home or self-care (01) ==
LOC: ED 11:42
DX: R45.851 Suicidal ideations (principal); F41.9 Anxiety disorder, unspecified
CPT/HCPCS: 36415; 80053; 80307; 80320; 80329; 81003; 84443; 84702; 85025; 99284; G0480

== ENCOUNTER 2018-07-12 16:04 | Inpatient (IN) | payer OTHER ==
[2018-07-12] MEDS ORDERED: NS 0.9% 1000 ML** 1,000 ML IV ONE (16:10)
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
[2018-07-12 16:44] LABS: Urine Appearance Clear; Urine Bilirubin Negative (Negative); Urine Blood Negative (Negative); Urine Color Straw; Urine Glucose Negative (Negative); Urine Ketones Negative (Negative); Urine Nitrite Negative (Negative); Urine Protein Negative (Negative); Urine Specific Gravity 1.006 (1.010-1.030); Urine Urobilinogen Negative (Negative)
[2018-07-12] MEDS ORDERED: PEG 3000 GI LAVAGE* 1 GALLON PO ONE (16:44)
[2018-07-12 16:59] LABS: Urine Benzodiazepine Screen None Detected (None Detect); Urine Opiates Screen None Detected (None Detect)
[2018-07-12 17:04] LABS: ABS Basophils 0.1 10^3/ul (0-0.2); ABS Eosinophils 0.2 10^3/ul (0-0.6); ABS Lymphocytes 2.4 10^3/ul (1.0-4.8); ABS Monocytes 1.1 10^3/ul (0-0.8); ABS Neutrophils 9.4 10^3/ul (1.5-7.7); ABS Nucleated RBC 0 10^3/ul; Eosinophil % 1.2 %; Hematocrit 39 % (33-41); Hemoglobin 12.5 g/dL (12.0-16.0); Lymphocyte % 18.3 %; Mean Corpuscular HGB Conc 32 g/dL (31-36); Mean Corpuscular Hemoglobin 24 pg (27-31); Mean Corpuscular Volume 75 fL (80-97); Mean Platelet Volume 7.9 fL (7.4-10.4); Nucleated Red Blood Cells % 0; Platelet Count 296 10^3/uL (150-450); Red Blood Count 5.15 10^6 /uL (3.70-4.87); Red Cell Distribution Width 16 % (10.5-15); White Blood Count 13.1 10^3/uL (3.5-10.8)
[2018-07-12 17:20] LABS: ALT 18 U/L (7-52); AST 19 U/L (13-39); Albumin 4.2 g/dL (3.2-5.2); Albumin/Globulin Ratio 1.3 (1-3); Alkaline Phosphatase 89 U/L (34-104); Anion Gap 8 mmol/L (2-11); BUN/Creatinine Ratio 21.1 (8-20); Blood Urea Nitrogen 15 mg/dL (6-24); CO2 Carbon Dioxide 20 mmol/L (22-32); Chloride 110 mmol/L (101-111); Creatine Kinase 246 U/L (10-223); EGFR African American 119.5 (>60); EGFR Non-African American 98.7 (>60); Globulin 3.2 g/dL (2-4); Glucose 99 mg/dL (70-100); Potassium 4.2 mmol/L (3.5-5.0); Sodium 138 mmol/L (135-145); Total Protein 7.4 g/dL (6.4-8.9)
[2018-07-12 17:21] LABS: Acetaminophen < 15 mcg/mL; Alcohol < 10 mg/dL (<10); Salicylate < 2.50 mg/dL (<30)
[2018-07-12 17:26] LABS: HCG Pregnancy < 0.60 mIU/mL
[2018-07-12] MEDS ORDERED: LORazepam INJ* 2 MG/ML 1 ML VIAL IV PUSH PRN (17:29)
[2018-07-12] MEDS ORDERED: Lorazepam PYXIS KEY PRN (17:29)
[2018-07-12 17:36] LABS: TSH (Thyroid Stimulating Horm) 2.74 mcIU/mL (0.34-5.60)
--- NOTE | 2018-07-12 19:04 | HP ---
HISTORY AND PHYSICAL: DATE OF ADMISSION: 07/12/18 ADMITTING PROVIDER: Nathan Roman MD PRIMARY CARE PROVIDER: Dr. Waldemar Yancey. OUTPATIENT PSYCHIATRIST: Dr. Grayson Benavides. CHIEF COMPLAINT: Suicidal attempt with overdose. HISTORY OF PRESENT ILLNESS: Melisa Turner is a 28-year-old female with past medical history of PTSD, depression, OCD, PCOS, asthma. She attests that she has been under a lot of stress in her life revolving around her [id number] son ; attending college; just started working again, working 80 hours during the week; in- laws are in town and they just bought a house. She was feeling overwhelmed and around 11:15 a.m., intentionally tried to end her life by taking all 3 bottles of her short-acting propranolol (180 tabs total or 3600 mg total of propranolol) along with 12 pills of her 300 mg Wellbutrin (total 3600 mg of Wellbutrin). Her found the empty pill bottles and took his to [facility] for further evaluation. Poison Control was contacted and there was concern that she had ingested potentially lethal amount of both propranolol and Wellbutrin. She was given 25 mg of charcoal and there was recommendation to initiate NG tube and GoLYTELY whole-bowel irrigation. They did not have any GoLYTELY at [facility], so the patient was transferred to [facility]. Her initial workup there included no anion gap, white count of 11.8, LFTs within normal limits, INR within normal limits. QTc was 373, FL interval of 181, normal sinus rhythm, heart rate 66. Upon arrival here, she was complaining of dizziness, nausea, but no vomiting and getting Zofran. Poison Control was just called back and given that her vital signs are stable and it is 6 hours out from her ingestion, they are now saying that they would not recommend proceeding with the whole-bowel irrigation. She is being admitted to the ICU. They also said that she needs at least 24 hours of monitoring, close monitoring of her QRS interval, she is at risk for seizures and can get benzodiazepines for those. She attests to still feeling tired, some nausea, some chronic abdominal pain, and she points to the right middle abdomen, she says from her PCOS. PAST MEDICAL HISTORY: PTSD, depression, OCD, PCOS, asthma. MEDICATIONS: Include: 1. Clonazepam 1 mg p.o. t.i.d. p.r.n. 2. Quetiapine (Seroquel) 200 mg p.o. at bedtime. 3. Propranolol 20 mg p.o. t.i.d. p.r.n. for panic attacks. 4. Fluoxetine either 60 mg (what the pharmacy is listing recently), she says she takes 80 mg daily. She says she takes an inhaler and also steroid inhaler for asthma, but the last was about 2 weeks ago. ALLERGIES: Include FENTANYL (which caused cardiac arrest 8 years ago). She also has allergies to PEANUTS, HONEY, BEE VENOM, MELONS. FAMILY HISTORY: Mother is healthy, alive. Dad, she does not know, says she does not have a father. SOCIAL HISTORY: She is a never smoker, never drinker. She is , has a 16 - month-old son. REVIEW OF SYSTEMS: A complete 14-point review of systems negative except as per HPI. PHYSICAL EXAMINATION GENERAL APPEARANCE: The patient is uncomfortable appearing, has an NG tube in place, asking for it to be taken out. VITAL SIGNS: Temperature 98.8, heart rate 74, respiratory rate 24, oxygen sat 97%, blood pressure 135/85. HEENT: Normocephalic, atraumatic. Pupils are equal, round, and reactive to light. Extraocular motions intact. No scleral icterus. Moist mucous membranes. NG tube in place. LUNGS: Clear to auscultation bilaterally with no wheezing, rales, or rhonchi. CARDIOVASCULAR: Regular rate and rhythm. No murmurs, rubs, or gallops. ABDOMEN: Soft, nondistended. Slight tenderness to the right abdomen. EXTREMITIES: Warm and well perfused. No peripheral edema. NEURO: Moving all extremities. Alert. GCS of 15. DIAGNOSTIC STUDIES/LAB DATA: White count 13.1, hemoglobin 12.5, hematocrit 39 , platelets 296. Sodium 138, potassium 4.2, carbon dioxide 20, BUN 15, creatinine 0.71, glucose 99, lactic acid 1.0. Total bili 0.2, AST 19, ALT 18, alk phos 89. Total CK 246. Albumin 4.2. TSH 2.74. Urinalysis: 1.006. Toxicology: Salicylates less than 2.5, acetaminophen less than 15, alcohol less than 10, otherwise none detected. Imaging: Chest x-ray demonstrated no acute cardiopulmonary process. EKG now at 1642 showed normal sinus rhythm, FL 181, QTc 391, left axis deviation , poor R-wave progression. No ST elevation or depression. ASSESSMENT AND PLAN: Melisa Turner is a 28-year-old female with past medical history of posttraumatic stress disorder, depression, obsessive-compulsive disorder, polycystic ovary syndrome, asthma, presenting with intentional overdose of 3600 mg of short-acting propranolol and 3600 mg of Wellbutrin. She is being admitted to the ICU for close hemodynamic and neuro monitoring and neuro checks. Continue telemetry. Poison Control is saying she needs at least 24 hours of observation. They are saying that she does not need now whole- bowel irrigation given her stability 6 hours out of the ingestion. We will pull the NG tube, cancel that. She was very hesitant. We will continue Zofran for her nausea. Add IV Ativan as needed for seizures or unresponsiveness. Her labs have now returned. She has a normal anion gap. We will give her maintenance IV fluids. Repeat labs in the morning. No LFT abnormalities. She is n.p.o. at the moment. She is a full code. Medical surrogate is her . [id number]/CPS #: [id number] DARIEL
[2018-07-12] MEDS: Ondansetron INJ* 2 MG/ML VIAL IV PRN (20:08)
[2018-07-12] MEDS: clonazePAM TAB(*) 1 MG PO PRN (21:00)
[2018-07-13] MEDS: Ondansetron INJ* 2 MG/ML VIAL IV PRN ×3 (03:15→21:49)
[2018-07-13 04:27] LABS: ABS Basophils 0.1 10^3/ul (0-0.2); ABS Eosinophils 0.3 10^3/ul (0-0.6); ABS Lymphocytes 3.8 10^3/ul (1.0-4.8); ABS Monocytes 0.7 10^3/ul (0-0.8); ABS Nucleated RBC 0 10^3/ul; Eosinophil % 2.7 %; Hematocrit 37 % (33-41); Hemoglobin 11.6 g/dL (12.0-16.0); Lymphocyte % 34.8 %; Mean Corpuscular HGB Conc 32 g/dL (31-36); Mean Corpuscular Hemoglobin 24 pg (27-31); Mean Corpuscular Volume 75 fL (80-97); Mean Platelet Volume 8.2 fL (7.4-10.4); Nucleated Red Blood Cells % 0; Platelet Count 261 10^3/uL (150-450); Red Blood Count 4.87 10^6 /uL (3.70-4.87); Red Cell Distribution Width 16 % (10.5-15); White Blood Count 11.1 10^3/uL (3.5-10.8)
[2018-07-13 04:35] LABS: BUN/Creatinine Ratio 16.3 (8-20); Calcium 8.7 mg/dL (8.6-10.3); EGFR African American 104.1 (>60); Potassium 3.8 mmol/L (3.5-5.0)
[2018-07-13 08:20] LABS: Magnesium 1.9 mg/dL (1.9-2.7)
[2018-07-13] MEDS: Ibuprofen TAB* 400 MG PO PRN ×2 (10:51→17:51)
--- NOTE | 2018-07-13 12:04 | PN ---
Subjective Date of Service: 07/13/18 Interval History: Patient feels tired, and says her heart hurts a bit. No dyspnea. She is willing to talk to psychiatry. States again that she took about 90 tabs 20 mg propranolol and 12 tabs wellbutrin. Feels shaky when she tries to walk. Family History: Unchanged from Admission Social History: Unchanged from Admission Past Medical History: Unchanged from Admission Objective Active Medications: Clonazepam (Klonopin Tab(*)) 1 mg PO TID PRN PRN Reason: ANXIETY Last Admin: 07/12/18 21:00 Dose: 1 mg Ibuprofen (Motrin Tab*) 400 mg PO Q6H PRN PRN Reason: PAIN - MILD TO MODERATE Last Admin: 07/13/18 10:51 Dose: 400 mg Lorazepam (Ativan Inj*) 1 mg IV PUSH Q10M PRN PRN Reason: seizure Ondansetron HCl (Zofran Inj*) 8 mg IV Q6H PRN PRN Reason: NAUSEA Last Admin: 07/13/18 03:15 Dose: 8 mg Vital Signs - 8 hr 07/13/18 07/13/18 07/13/18 04:00 04:01 05:00 Temperature Pulse Rate 56 54 54 Respiratory 21 22 15 Rate Blood Pressure 89/57 96/60 (mmHg) O2 Sat by Pulse 99 99 99 Oximetry 07/13/18 07/13/18 07/13/18 05:30 06:00 06:02 Temperature Pulse Rate 55 50 Respiratory 17 14 24 Rate Blood Pressure 96/58 (mmHg) O2 Sat by Pulse 99 99 Oximetry 07/13/18 07/13/18 07:49 08:21 Temperature 35.9 C 36.6 C Pulse Rate 53 Respiratory 20 Rate Blood Pressure 110/53 (mmHg) O2 Sat by Pulse 98 Oximetry Oxygen Devices in Use Now: None Appearance: sleeping, aroused to voice and light touch, 1:1 aide present Eyes: No Scleral Icterus Ears/Nose/Mouth/Throat: NL Teeth, Lips, Gums Neck: NL Appearance and Movements; NL JVP Respiratory: Symmetrical Chest Expansion and Respiratory Effort, Clear to Auscultation Cardiovascular: NL Sounds; No Murmurs; No JVD Abdominal: NL Sounds; No Tenderness; No Distention Skin: No Rash or Ulcers Neurological: Alert and Oriented x 3 Lines/Tubes/Other Access: Clean, Dry and Intact Peripheral IV Nutrition: Taking PO's Result Diagrams: 07/13/18 04:11 07/13/18 04:11 Additional Lab and Data: Laboratory Tests 07/13/18 04:11 Glucose 89 Calcium 8.7 Magnesium 1.9 Microbiology and Other Data: Microbiology 07/12/18 19:21 Nasal Screen MRSA (PCR) - Final Nasal Mrsa Not Detected EKG Data: Telemetry: HR 40-55, sinus landy EKG: sinus landy w/ sinus irregularity Assess/Plan/Problems-Billing Assessment: 28 year old woman with attempt at suicide with significant beta ramón overdose as well as wellbutrin OD. - Patient Problems (1) Beta ramón toxicity Current Visit: Yes Status: Acute Priority: High Code(s): ZGG0488 - SNOMED Code(s): 474583654 Comment: -HR remains around 40-50, not in great danger -Will monitor 24 hours on telemetry -Discussed w/ ICU attending, he feels she took much smaller overdose of BB than reported (2) Antidepressant causing adverse effect in therapeutic use Current Visit: Yes Status: Acute Priority: Medium Code(s): T43.205A - ADVERSE EFFECT OF UNSPECIFIED ANTIDEPRESSANTS, INIT ENCNTR SNOMED Code(s): 985354648 Comment: -Wellbutrin OD raises risk of seizure -Will continue 1:1 monitoring and seizure precautions. (3) Suicide attempt by adequate means Current Visit: Yes Status: Acute Priority: High Code(s): X83.8XXA - INTENTIONAL SELF-HARM BY OTHER SPECIFIED MEANS, INIT ENCNTR SNOMED Code(s): 00586412 Comment: -Consult pending from Dr. Casanova of psychiatry -Can restart Prozac and Seroquel. (4) DVT prophylaxis Current Visit: Yes Status: Acute Priority: Low Code(s): TTQ2252 - SNOMED Code(s): 734195449 Comment: -SCDs due to inactivity, OCPs
[2018-07-13] MEDS: clonazePAM TAB(*) 1 MG PO PRN ×2 (14:29→22:34)
--- NOTE | 2018-07-13 17:54 | PN ---
Progress Note - Progress Note Date of Service: 07/13/18 Note: Just received a call fron nursing that there was a consult from about a 28 y/ o female admitted on medical due to a serious suicide attempt by ingesting 3600 mg Propranolol, 200mg Wellbutrin and 60mg of Klonopin. She is being monitored on medical as per poison control recommendation and appears to improving. HR now is low 50s. She will be medically stable soon and the medical team needs help with disposition. Obviously this was a serious suicide attemt and patient will need inpatient on psychiatric floor for her safety and stabilization. I don 't see any benifit to do a consult when it is evident that she need to come down after a medical clearence. Accepted patient for BSU depending on bed availability. Discussed the case with Dr. Murray who agrees with the plan.
[2018-07-13] MEDS ORDERED: metFORMIN* 500 MG TAB PO SCH (21:00)
[2018-07-13] MEDS: QUEtiapine TAB* 300 MG PO SCH (21:00)
[2018-07-14 05:56] LABS: ABS Basophils 0 10^3/ul (0-0.2); ABS Eosinophils 0.3 10^3/ul (0-0.6); ABS Lymphocytes 3.3 10^3/ul (1.0-4.8); ABS Monocytes 0.6 10^3/ul (0-0.8); ABS Nucleated RBC 0 10^3/ul; Eosinophil % 4.4 %; Hematocrit 36 % (33-41); Hemoglobin 11.9 g/dL (12.0-16.0); Lymphocyte % 45.4 %; Mean Corpuscular HGB Conc 33 g/dL (31-36); Mean Corpuscular Hemoglobin 25 pg (27-31); Mean Corpuscular Volume 76 fL (80-97); Mean Platelet Volume 8.3 fL (7.4-10.4); Nucleated Red Blood Cells % 0.1; Platelet Count 236 10^3/uL (150-450); Red Blood Count 4.78 10^6 /uL (3.70-4.87); Red Cell Distribution Width 16 % (10.5-15); White Blood Count 7.3 10^3/uL (3.5-10.8)
[2018-07-14 06:13] LABS: BUN/Creatinine Ratio 12.2 (8-20); Calcium 8.8 mg/dL (8.6-10.3); EGFR African American 90.9 (>60); EGFR Non-African American 75.1 (>60)
[2018-07-14] MEDS: Ibuprofen TAB* 400 MG PO PRN (08:24)
[2018-07-14] MEDS ORDERED: FLUoxetine CAP* 20 MG PO SCH (09:00)
--- NOTE | 2018-07-14 09:38 | PN ---
Subjective Date of Service: 07/14/18 Interval History: Patient feels less shaky than yesterday.She has been ambulatory. Denies SOB, chest pain, palpitations. Family History: Unchanged from Admission Social History: Unchanged from Admission Past Medical History: Unchanged from Admission Objective Active Medications: Clonazepam (Klonopin Tab(*)) 1 mg PO TID PRN PRN Reason: ANXIETY Last Admin: 07/13/18 22:34 Dose: 1 mg Fluoxetine HCl (Prozac Cap*) 60 mg PO DAILY [facility] Last Admin: 07/14/18 08:22 Dose: 60 mg Ibuprofen (Motrin Tab*) 400 mg PO Q6H PRN PRN Reason: PAIN - MILD TO MODERATE Last Admin: 07/14/18 08:24 Dose: 400 mg Lorazepam (Ativan Inj*) 1 mg IV PUSH Q10M PRN PRN Reason: seizure Ondansetron HCl (Zofran Inj*) 8 mg IV Q6H PRN PRN Reason: NAUSEA Last Admin: 07/13/18 21:49 Dose: 8 mg Quetiapine Fumarate (Seroquel Tab*) 300 mg PO BEDTIME [facility] Last Admin: 07/13/18 21:00 Dose: 300 mg Vital Signs - 8 hr 07/14/18 07/14/18 07/14/18 03:13 03:16 07:25 Temperature 35.8 C 36.2 C Pulse Rate 51 54 Respiratory 16 20 Rate Blood Pressure 79/39 90/65 99/56 (mmHg) O2 Sat by Pulse 99 97 Oximetry 07/14/18 07:48 Temperature Pulse Rate Respiratory 16 Rate Blood Pressure (mmHg) O2 Sat by Pulse Oximetry Oxygen Devices in Use Now: None Appearance: sleeping, arouses to light touch Neurological: Alert and Oriented x 3 Lines/Tubes/Other Access: Clean, Dry and Intact Peripheral IV Nutrition: Taking PO's Result Diagrams: 07/14/18 05:18 07/14/18 05:18 Additional Lab and Data: Laboratory Tests 07/14/18 07/14/18 05:18 06:39 Glucose 84 Calcium 8.8 Magnesium 2.0 EKG Data: EKG: no QT prolongation Assess/Plan/Problems-Billing Assessment: 28 year old woman with attempt at suicide with significant beta ramón overdose as well as wellbutrin OD. - Patient Problems (1) Beta ramón toxicity Current Visit: Yes Status: Acute Priority: High Code(s): MUQ7333 - SNOMED Code(s): 347720994 Comment: -HR remains in 50s, >36 hours post ingestion -She is medically stable to move to B[facility] -Suspect she took much smaller overdose of BB than reported (2) Antidepressant causing adverse effect in therapeutic use Current Visit: Yes Status: Acute Priority: Medium Code(s): T43.205A - ADVERSE EFFECT OF UNSPECIFIED ANTIDEPRESSANTS, INIT ENCNTR SNOMED Code(s): 664716793 Comment: -Wellbutrin OD raises risk of seizure -Can discontinue seizure precautions. (3) Suicide attempt by adequate means Current Visit: Yes Status: Acute Priority: High Code(s): X83.8XXA - INTENTIONAL SELF-HARM BY OTHER SPECIFIED MEANS, INIT ENCNTR SNOMED Code(s): 24863264 Comment: -Spoke with Dr. Casanova of psychiatry -Transfer today to psychiatry floor (4) DVT prophylaxis Current Visit: Yes Status: Acute Priority: Low Code(s): HPY4355 - SNOMED Code(s): 140831187 Comment: -SCDs due to inactivity, OCPs Status and Disposition: inpatient
[2018-07-14] MEDS: clonazePAM TAB(*) 1 MG PO PRN (12:32)
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
[2018-07-14] MEDS: QUEtiapine TAB* 300 MG PO SCH (19:52)
[2018-07-14] MEDS ORDERED: Al Hydrox/Mg Hydrox/Simet LIQ* 30 ML UDC PO PRN (21:50)
[2018-07-14] MEDS ORDERED: Acetaminophen TAB* 325 MG PO PRN (21:50)
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
[2018-07-15 07:05] LABS: ABS Basophils 0.1 10^3/ul (0-0.2); ABS Eosinophils 0.3 10^3/ul (0-0.6); ABS Lymphocytes 2.2 10^3/ul (1.0-4.8); ABS Monocytes 0.7 10^3/ul (0-0.8); ABS Neutrophils 5.4 10^3/ul (1.5-7.7); ABS Nucleated RBC 0 10^3/ul; Eosinophil % 2.9 %; Hematocrit 37 % (33-41); Lymphocyte % 24.9 %; Mean Corpuscular HGB Conc 32 g/dL (31-36); Mean Corpuscular Hemoglobin 24 pg (27-31); Mean Corpuscular Volume 75 fL (80-97); Nucleated Red Blood Cells % 0; Platelet Count 250 10^3/uL (150-450); Red Blood Count 4.96 10^6 /uL (3.70-4.87); Red Cell Distribution Width 16 % (10.5-15); White Blood Count 8.7 10^3/uL (3.5-10.8)
[2018-07-15 07:23] LABS: BUN/Creatinine Ratio 14.6 (8-20); Calcium 8.9 mg/dL (8.6-10.3); EGFR African American 101.2 (>60); EGFR Non-African American 83.6 (>60); Potassium 4.1 mmol/L (3.5-5.0)
[2018-07-15] MEDS ORDERED: Escitalopram * 10 MG TAB PO SCH (09:00)
[2018-07-15] MEDS: Vitamin THERAPEUTIC TAB PO SCH (11:16)
--- NOTE | 2018-07-15 15:02 | TRS ---
CC: Dr. Damon; Dr. Waldemar Yancey; [facility] TRANSFER SUMMARY: DATE OF ADMISSION: 07/12/18 DATE OF TRANSFER: 07/14/18 PRIMARY CARE PHYSICIAN: Dr. Waldemar Yancey. ACCEPTING PHYSICIAN: Dr. Damon at the behavioral health unit, [facility]. PRIMARY DIAGNOSIS: Suicide attempt with multiple potentially lethal medications. SECONDARY DIAGNOSES: 1. Overdose with Wellbutrin, overdose with propranolol. 2. Chronic depression. 3. Asthma. 4. Posttraumatic stress disorder. 5. Polycystic ovarian syndrome. MEDICATIONS AT THE TIME OF TRANSFER: 1. Clonazepam 1 mg p.o. t.i.d. p.r.n. anxiety. 2. Fluoxetine 60 mg p.o. q.a.m. 3. Ibuprofen 400 mg p.o. q.6 hours p.r.n. pain. 4. Lorazepam 1 mg IV push p.r.n. seizure. 5. Zofran 8 mg IV q.6 hours p.r.n. nausea. 6. Quetiapine 300 mg p.o. q.h.s. HOSPITAL COURSE: A 28-year-old woman with history of PTSD and depression was admitted after she was initially brought to [facility] by her for evaluation. She reported taking 180 tablets of propranolol 20 mg along with 12 tablets of 300 mg Wellbutrin. In the emergency department, of course, she did have a dose of charcoal through NG tube, but she did not have GoLYTELY whole-bowel irrigation. She was then transferted to the [facility] emergency department. Poison Control was contacted and she was advised to be admitted to the intensive care unit and have close monitoring of her heart rate and blood pressure due to significant beta-ramón overdose. Review of her EKG showed QT interval was 373 milliseconds. The patient was monitored for approximately 18 hours in the ICU and approximately another 24 hours on the medical floor. Her blood pressure fell as low as 83/65, but was generally in the 90s to 100 systolic and stable, and her heart rate fell as low as 49 beats per minute, but was generally in the 50s. Opinion of the intensive care doctor and the hospitalist was that the patient likely took an overdose of beta ramón , but not as significant as she reported. The Wellbutrin led to concern of seizures, so the patient was placed on seizure prophylaxis and neuro checks, but no seizures occurred. On 07/13/18, Psychiatry was contacted and Dr. Casanova gave an opinion and that the patient needed to be transferred to the behavioral health unit when medically stable and when bed was available. The patient was accepted at the behavioral health unit by Dr. Damon on 07/14/18. She has been medically stable and has completed the course of monitoring that was recommended By Poison Control. STATUS: Inpatient. CONDITION: Stable. DIET: Regular. ACTIVITY: Will be as tolerated. [id number]/[facility] #: [id number] DARIEL
[2018-07-15] MEDS: hydrOXYzine HCL TAB* 25 MG PO PRN (15:28)
[2018-07-15] MEDS: QUEtiapine TAB* 100 MG PO SCH (20:44)
[2018-07-16 08:26] LABS: ABS Basophils 0.1 10^3/ul (0-0.2); ABS Eosinophils 0.2 10^3/ul (0-0.6); ABS Lymphocytes 2.2 10^3/ul (1.0-4.8); ABS Monocytes 0.4 10^3/ul (0-0.8); ABS Neutrophils 5.6 10^3/ul (1.5-7.7); ABS Nucleated RBC 0 10^3/ul; Hematocrit 39 % (33-41); Hemoglobin 12.6 g/dL (12.0-16.0); Lymphocyte % 25.8 %; Mean Corpuscular HGB Conc 32 g/dL (31-36); Mean Corpuscular Hemoglobin 24 pg (27-31); Mean Corpuscular Volume 75 fL (80-97); Mean Platelet Volume 8.1 fL (7.4-10.4); Nucleated Red Blood Cells % 0; Platelet Count 275 10^3/uL (150-450); Red Blood Count 5.25 10^6 /uL (3.70-4.87); Red Cell Distribution Width 16 % (10.5-15); White Blood Count 8.5 10^3/uL (3.5-10.8)
[2018-07-16] MEDS: Vitamin THERAPEUTIC TAB PO SCH (09:04)
[2018-07-16] MEDS: Venlafaxine EXT RELEASE CAP* 75 MG PO SCH (09:05)
[2018-07-16] MEDS: hydrOXYzine HCL TAB* 25 MG PO PRN ×2 (09:05→19:06)
--- NOTE | 2018-07-16 10:21 | PN ---
Subjective - Subjective Date of Service: 07/16/18 Service Type: 80277 Hosp care 35 min high complexity Subjective: Nursing Report: Patient was visible on unit, no chemical restraints, Slept overnight without incident. Attending group activities. CC: "I am sad Patient was seen and evaluated in the group room. The patient reported she feels safe on the unit and reported needing to go to therapy 3 times a week. She reported having an adequate appetite. The patient reported attending and participating in day groups. Per nursing no behavioral issues or overnight events reported. Patient reported that she is tolerating medications without side effects. She denied chest pain , trouble breathing, loss of consciousness. She reflected on the devastation killing herself would have on her son. Objective - General Observations Appearance: Disheveled Appears Stated Age: No - older than stated age Stature: Overweight Posture: Slumped Eye Contact: Average Behavior/Activity: WNL - Interaction Observations Attitude Towards Examiner: Cooperative, Mistrustful Stated Mood: Dysphoric Affect: Blunted Speech Pattern/Tone: Appropriate Thought Process: Coherent Perception: WNL Thought Content: Depressive Thought Process: Lethality: Suicidal Planning Hallucination Type: None Delusion Type: None - Cognitive Function Orientation: A&O x 4 Level of Consciousness: Awake Cognition: WNL Estimated Intelligence: Normal Judgment Within Normal Limits: No Ability to Make Reasonable Decisions: Mildly Impaired - Medication Compliance Cooperative with Inpatient Medication Regimen: Yes - Group Participation Participates in Group Activities: Yes Plan - Plan Treatment Plan: Name: DANIELLE ARAUJO Birthdate: 1990 [id number] Plan # The patient requires inpatient admission at this time to assure safety, receive treatment and work toward stabilization. # B-HCG results are negative. # Husbands # [phone] release was signed. # Collaboration with Social Work to assist with disposition and after care. #MMPI #Continue seroquel 100mg at night #D/C lexapro # Start effexor 75mg daily and remeron 7.5mg at night. #Family meeting for Saturday or Saturday Tentative Discharge Saturday Sodium 137 mmol/L (135-145) 07/15/18 06:52 Potassium 4.1 mmol/L (3.5-5.0) 07/15/18 06:52 BUN 12 mg/dL (6-24) 07/15/18 06:52 Creatinine 0.82 mg/dL (0.51-0.95) 07/15/18 06:52 Calcium 8.9 mg/dL (8.6-10.3) 07/15/18 06:52 Magnesium 2.0 mg/dL (1.9-2.7) 07/16/18 08:03 AST 19 U/L (13-39) 07/12/18 16:55 ALT 18 U/L (7-52) 07/12/18 16:55 Vital Signs Temp Pulse Resp BP Pulse Ox 98.0 F 79 16 121/64 100 07/16/18 07:54 07/16/18 07:54 07/16/18 14:04 07/16/18 07:54 07/16/18 07:54 Continued Medication Management: Continue Outpt Medication Medications: Current Medications Acetaminophen (Tylenol Tab*) 650 mg PO Q4H PRN PRN Reason: PAIN or TEMP > 101 F Al Hydrox/Mg Hydrox/Simethicone (Maalox Plus*) 30 ml PO Q4H PRN PRN Reason: INDIGESTION Hydroxyzine HCl (Atarax Tab*) 25 mg PO Q6H PRN PRN Reason: ANXIETY Last Admin: 07/16/18 09:05 Dose: 25 mg Mirtazapine (Remeron Tab*) 7.5 mg PO BEDTIME [facility] Multivitamins (Theragran Tab*) 1 tab PO DAILY [facility] Last Admin: 07/16/18 09:04 Dose: Not Given Quetiapine Fumarate (Seroquel Tab*) 100 mg PO BEDTIME [facility] Last Admin: 07/15/18 20:44 Dose: 100 mg Venlafaxine HCl (Effexor Xr Cap*) 75 mg PO DAILY [facility] Last Admin: 07/16/18 09:05 Dose: 75 mg - Discharge Plan Discharge Plan: Inpatient Hospitalization
[2018-07-16] MEDS ORDERED: Mirtazapine TAB* 15 MG PO SCH (21:00)
[2018-07-16] MEDS: QUEtiapine TAB* 100 MG PO SCH (21:10)
[2018-07-17] MEDS: Vitamin THERAPEUTIC TAB PO SCH (08:44)
[2018-07-17] MEDS: Venlafaxine EXT RELEASE CAP* 75 MG PO SCH (08:44)
[2018-07-17] MEDS: hydrOXYzine HCL TAB* 25 MG PO PRN ×2 (08:45→13:43)
[2018-07-17] MEDS ORDERED: Venlafaxine EXT RELEASE CAP* 75 MG PO SCH (09:00)
[2018-07-17 09:02] LABS: ABS Basophils 0.1 10^3/ul (0-0.2); ABS Eosinophils 0.2 10^3/ul (0-0.6); ABS Lymphocytes 2.2 10^3/ul (1.0-4.8); ABS Monocytes 0.3 10^3/ul (0-0.8); ABS Neutrophils 6.2 10^3/ul (1.5-7.7); ABS Nucleated RBC 0 10^3/ul; Eosinophil % 1.7 %; Hematocrit 41 % (35-47); Hemoglobin 13.3 g/dL (12.0-16.0); Lymphocyte % 24.2 %; Mean Corpuscular HGB Conc 32 g/dL (31-36); Mean Corpuscular Hemoglobin 25 pg (27-31); Mean Corpuscular Volume 76 fL (80-97); Mean Platelet Volume 7.9 fL (7.4-10.4); Nucleated Red Blood Cells % 0; Platelet Count 280 10^3/uL (150-450); Red Cell Distribution Width 16 % (10.5-15); White Blood Count 8.9 10^3/uL (3.5-10.8)
--- NOTE | 2018-07-17 11:06 | PN ---
Subjective - Subjective Date of Service: 07/17/18 Service Type: 05081 Hosp care 35 min high complexity Subjective: Nursing Report: Patient was visible on unit, no chemical restraints, No overnight incidents. Attending group activities. CC: "I think I am better today Patient was seen and evaluated in the common room. The patient reported that Saturday will be the best time to have a family meeting with her . She reported some difficulty with sleep overnight. She was observed interacting with peers. She reported having an adequate appetite. The patient reported attending and participating in day groups. Per nursing no behavioral issues or overnight events reported. Patient reported that she is tolerating medications without side effects. She denied chest pain , trouble breathing, loss of consciousness. Objective - General Observations Appearance: Disheveled Appears Stated Age: No - older Stature: Overweight Posture: Slumped Eye Contact: Average Behavior/Activity: WNL - Interaction Observations Attitude Towards Examiner: Cooperative Stated Mood: Dysphoric Affect: Blunted Speech Pattern/Tone: Appropriate Thought Process: Coherent Perception: WNL Thought Content: WNL Thought Process: Lethality: Passive Wish Hallucination Type: None Delusion Type: None - Cognitive Function Orientation: A&O x 4 Level of Consciousness: Awake Estimated Intelligence: Normal Judgment Within Normal Limits: No Ability to Make Reasonable Decisions: Mildly Impaired - Medication Compliance Cooperative with Inpatient Medication Regimen: Yes - Group Participation Participates in Group Activities: Yes Assessment - Assessment Merits Inpatient Hospitalization: For Immediate Safety Clinical Impression: 28 year old female with recent suicide attempt of ingesting two bottles of pills with lethal intent Plan - Plan Treatment Plan: Name: DANIELLE ARAUJO Birthdate: 1990 [id number] Plan Q30 and Staff pass # The patient requires inpatient admission at this time to assure safety, receive treatment and work toward stabilization. # B-HCG results are negative. # Husbands # [phone] release was signed. # Collaboration with Social Work to assist with disposition and after care. #MMPI #Increase seroquel 150mg at night # Start effexor 112.5mg daily and remeron 15 mg at night. #Family meeting for Saturday #Showed mild improvement of affect Tentative Discharge Saturday Vital Signs Temp Pulse Resp BP Pulse Ox 98.4 F 88 16 121/83 100 07/17/18 08:15 07/17/18 08:15 07/17/18 08:15 07/17/18 08:15 07/17/18 08:15 Laboratory Results WBC 8.9 10^3/uL (3.5-10.8) 07/17/18 08:43 RBC 5.40 10^6 /uL (3.70-4.87) H 07/17/18 08:43 Hgb 13.3 g/dL (12.0-16.0) 07/17/18 08:43 Hct 41 % (35-47) 07/17/18 08:43 MCV 76 fL (80-97) L 07/17/18 08:43 MCH 25 pg (27-31) L 07/17/18 08:43 MCHC 32 g/dL (31-36) 07/17/18 08:43 RDW 16 % (10.5-15) H 07/17/18 08:43 Plt Count 280 10^3/uL (150-450) 07/17/18 08:43 MPV 7.9 fL (7.4-10.4) 07/17/18 08:43 Neut % (Auto) 69.9 % 07/17/18 08:43 Lymph % (Auto) 24.2 % 07/17/18 08:43 [place] % (Auto) 3.5 % 07/17/18 08:43 Eos % (Auto) 1.7 % 07/17/18 08:43 Baso % (Auto) 0.7 % 07/17/18 08:43 Absolute Neuts (auto) 6.2 10^3/ul (1.5-7.7) 07/17/18 08:43 Absolute Lymphs (auto) 2.2 10^3/ul (1.0-4.8) 07/17/18 08:43 Absolute Monos (auto) 0.3 10^3/ul (0-0.8) 07/17/18 08:43 Absolute Eos (auto) 0.2 10^3/ul (0-0.6) 07/17/18 08:43 Absolute Basos (auto) 0.1 10^3/ul (0-0.2) 07/17/18 08:43 Absolute Nucleated RBC 0 10^3/ul 07/17/18 08:43 Nucleated RBC % 0 07/17/18 08:43 Sodium 137 mmol/L (135-145) 07/15/18 06:52 Potassium 4.1 mmol/L (3.5-5.0) 07/15/18 06:52 Chloride 105 mmol/L (101-111) 07/15/18 06:52 Carbon Dioxide 25 mmol/L (22-32) 07/15/18 06:52 Anion Gap 7 mmol/L (2-11) 07/15/18 06:52 BUN 12 mg/dL (6-24) 07/15/18 06:52 Creatinine 0.82 mg/dL (0.51-0.95) 07/15/18 06:52 Est GFR ( Amer) 101.2 (>60) 07/15/18 06:52 Est GFR (Non-Af Amer) 83.6 (>60) 07/15/18 06:52 BUN/Creatinine Ratio 14.6 (8-20) 07/15/18 06:52 Glucose 99 mg/dL (70-100) 07/15/18 06:52 Lactic Acid 1.0 mmol/L (0.5-2.0) 07/12/18 16:55 Calcium 8.9 mg/dL (8.6-10.3) 07/15/18 06:52 Magnesium 1.9 mg/dL (1.9-2.7) 07/17/18 08:43 Total Bilirubin 0.20 mg/dL (0.2-1.0) 07/12/18 16:55 AST 19 U/L (13-39) 07/12/18 16:55 ALT 18 U/L (7-52) 07/12/18 16:55 Alkaline Phosphatase 89 U/L (34-104) 07/12/18 16:55 Total Creatine Kinase 246 U/L (10-223) H 07/12/18 16:55 Total Protein 7.4 g/dL (6.4-8.9) 07/12/18 16:55 Albumin 4.2 g/dL (3.2-5.2) 07/12/18 16:55 Globulin 3.2 g/dL (2-4) 07/12/18 16:55 Albumin/Globulin Ratio 1.3 (1-3) 07/12/18 16:55 TSH 2.74 mcIU/mL (0.34-5.60) 07/12/18 16:55 Beta HCG, Quant < 0.60 mIU/mL 07/12/18 16:55 Urine Color Straw 07/12/18 16:31 Urine Appearance Clear 07/12/18 16:31 Urine pH 6.0 (5-9) 07/12/18 16:31 Ur Specific [place] 1.006 (1.010-1.030) L 07/12/18 16:31 Urine Protein Negative (Negative) 07/12/18 16:31 Urine Ketones Negative (Negative) 07/12/18 16:31 Urine Blood Negative (Negative) 07/12/18 16:31 Urine Nitrate Negative (Negative) 07/12/18 16:31 Urine Bilirubin Negative (Negative) 07/12/18 16:31 Urine Urobilinogen Negative (Negative) 07/12/18 16:31 Ur Leukocyte Esterase Negative (Negative) 07/12/18 16:31 Urine Glucose Negative (Negative) 07/12/18 16:31 Salicylates < 2.50 mg/dL (<30) 07/12/18 16:55 Urine Opiates Screen None detected (None Detect) 07/12/18 16:31 Acetaminophen < 15 mcg/mL 07/12/18 16:55 Ur Barbiturates Screen None detected (None Detect) 07/12/18 16:31 Ur Phencyclidine Scrn None detected (None Detect) 07/12/18 16:31 Ur Amphetamines Screen None detected (None Detect) 07/12/18 16:31 U Benzodiazepines Scrn None detected (None Detect) 07/12/18 16:31 Urine Cocaine Screen None detected (None Detect) 07/12/18 16:31 U Cannabinoids Screen None detected (None Detect) 07/12/18 16:31 Serum Alcohol < 10 mg/dL (<10) 07/12/18 16:55 Continued Medication Management: Continue Outpt Medication Medications: Current Medications Acetaminophen (Tylenol Tab*) 650 mg PO Q4H PRN PRN Reason: PAIN or TEMP > 101 F Al Hydrox/Mg Hydrox/Simethicone (Maalox Plus*) 30 ml PO Q4H PRN PRN Reason: INDIGESTION Hydroxyzine HCl (Atarax Tab*) 25 mg PO Q6H PRN PRN Reason: ANXIETY Last Admin: 07/17/18 08:45 Dose: 25 mg Ibuprofen (Motrin Tab*) 600 mg PO Q6H PRN PRN Reason: PAIN Mirtazapine (Remeron Tab*) 15 mg PO BEDTIME [facility] Multivitamins (Theragran Tab*) 1 tab PO DAILY [facility] Last Admin: 07/17/18 08:44 Dose: 1 tab Quetiapine Fumarate (Seroquel Tab*) 150 mg PO BEDTIME [facility] Venlafaxine HCl (Effexor Xr Cap*) 37.5 mg PO DAILY [facility] Venlafaxine HCl (Effexor Xr Cap*) 75 mg PO DAILY [facility] - Discharge Plan Discharge Plan: Inpatient Hospitalization
[2018-07-17] MEDS: Venlafaxine EXT RELEASE CAP* 37.5 MG PO SCH (12:24)
[2018-07-17] MEDS: Ibuprofen TAB* 600 MG PO PRN (18:10)
[2018-07-17] MEDS: QUEtiapine TAB* 100 MG PO SCH (20:14)
[2018-07-17] MEDS: Mirtazapine TAB* 15 MG PO SCH (20:15)
[2018-07-17] MEDS ORDERED: QUEtiapine TAB* 100 MG PO SCH (21:00)
[2018-07-18] MEDS: Vitamin THERAPEUTIC TAB PO SCH (08:33)
[2018-07-18] MEDS: hydrOXYzine HCL TAB* 25 MG PO PRN ×2 (08:33→14:12)
[2018-07-18] MEDS: Venlafaxine EXT RELEASE CAP* 37.5 MG PO SCH (08:33)
[2018-07-18] MEDS ORDERED: Venlafaxine EXT RELEASE CAP* 75 MG PO SCH (09:00)
--- NOTE | 2018-07-18 10:46 | PN ---
Subjective - Subjective Date of Service: 07/18/18 Service Type: 77856 Hosp care 35 min high complexity Subjective: Nursing Report: Patient was visible on unit, no chemical restraints, No overnight incidents. Attending group activities. CC: "I want to read this book Patient was seen and evaluated in the common room. The patient was met with her mother in law and and son during the family meeting. Danielle is motivated for therapy. She identified that she likes to swim and plans to do that more when discharged. Her went through the house and collected medications and put them in the safe. She doesnt have access to firearms. Warning signs and importance of communication was discussed. She reported some difficulty with sleep overnight because of loud noises. She reported having an adequate appetite. The patient reported attending and participating in day groups. Per nursing no behavioral issues or overnight events. Objective - General Observations Appearance: Disheveled Appears Stated Age: No - older Stature: WNL, Overweight Posture: Slumped Eye Contact: Average, Intermittent Behavior/Activity: WNL - Interaction Observations Attitude Towards Examiner: Cooperative Attitude Towards Parent/Guardian: Positive Interaction Stated Mood: Irritable Affect: Blunted Speech Pattern/Tone: Clear Thought Process: Coherent Perception: WNL Thought Content: Self-Deprecatory Hallucination Type: None Delusion Type: None - Cognitive Function Orientation: A&O x 4 Level of Consciousness: Awake - Medication Compliance Cooperative with Inpatient Medication Regimen: Yes - Group Participation Participates in Group Activities: Yes Assessment - Assessment Clinical Impression: 28 year old female with recent suicide attempt of ingesting two bottles of pills with lethal intent Plan - Plan Treatment Plan: Name: DANIELLE ARAUJO Birthdate: 1990 [id number] Plan Q30 and Staff pass # The patient requires inpatient admission at this time to assure safety, receive treatment and work toward stabilization. # B-HCG results are negative. # Husbands # [phone] release was signed. # Collaboration with Social Work to assist with disposition and after care. #MMPI #Continue seroquel 150mg at night #Message left for outpatient prescriber Dr. Benavides [phone] # Continue effexor 150 mg daily and remeron 15 mg at night. # Family meeting and confirmed she is at her baseline and is in agreement with discharge Saturday # Showed mild improvement of affect Tentative Discharge Saturday Vital Signs Temp Pulse Resp BP Pulse Ox 96.4 F 96 16 120/61 100 07/18/18 07:32 07/18/18 07:32 07/18/18 07:32 07/18/18 07:32 07/18/18 07:32 Laboratory Results WBC 8.9 10^3/uL (3.5-10.8) 07/17/18 08:43 RBC 5.40 10^6 /uL (3.70-4.87) H 07/17/18 08:43 Hgb 13.3 g/dL (12.0-16.0) 07/17/18 08:43 Hct 41 % (35-47) 07/17/18 08:43 MCV 76 fL (80-97) L 07/17/18 08:43 MCH 25 pg (27-31) L 07/17/18 08:43 MCHC 32 g/dL (31-36) 07/17/18 08:43 RDW 16 % (10.5-15) H 07/17/18 08:43 Plt Count 280 10^3/uL (150-450) 07/17/18 08:43 MPV 7.9 fL (7.4-10.4) 07/17/18 08:43 Neut % (Auto) 69.9 % 07/17/18 08:43 Lymph % (Auto) 24.2 % 07/17/18 08:43 [place] % (Auto) 3.5 % 07/17/18 08:43 Eos % (Auto) 1.7 % 07/17/18 08:43 Baso % (Auto) 0.7 % 07/17/18 08:43 Absolute Neuts (auto) 6.2 10^3/ul (1.5-7.7) 07/17/18 08:43 Absolute Lymphs (auto) 2.2 10^3/ul (1.0-4.8) 07/17/18 08:43 Absolute Monos (auto) 0.3 10^3/ul (0-0.8) 07/17/18 08:43 Absolute Eos (auto) 0.2 10^3/ul (0-0.6) 07/17/18 08:43 Absolute Basos (auto) 0.1 10^3/ul (0-0.2) 07/17/18 08:43 Absolute Nucleated RBC 0 10^3/ul 07/17/18 08:43 Nucleated RBC % 0 07/17/18 08:43 Sodium 137 mmol/L (135-145) 07/15/18 06:52 Potassium 4.1 mmol/L (3.5-5.0) 07/15/18 06:52 Chloride 105 mmol/L (101-111) 07/15/18 06:52 Carbon Dioxide 25 mmol/L (22-32) 07/15/18 06:52 Anion Gap 7 mmol/L (2-11) 07/15/18 06:52 BUN 12 mg/dL (6-24) 07/15/18 06:52 Creatinine 0.82 mg/dL (0.51-0.95) 07/15/18 06:52 Est GFR ( Amer) 101.2 (>60) 07/15/18 06:52 Est GFR (Non-Af Amer) 83.6 (>60) 07/15/18 06:52 BUN/Creatinine Ratio 14.6 (8-20) 07/15/18 06:52 Glucose 99 mg/dL (70-100) 07/15/18 06:52 Lactic Acid 1.0 mmol/L (0.5-2.0) 07/12/18 16:55 Calcium 8.9 mg/dL (8.6-10.3) 07/15/18 06:52 Magnesium 1.9 mg/dL (1.9-2.7) 07/17/18 08:43 Total Bilirubin 0.20 mg/dL (0.2-1.0) 07/12/18 16:55 AST 19 U/L (13-39) 07/12/18 16:55 ALT 18 U/L (7-52) 07/12/18 16:55 Alkaline Phosphatase 89 U/L (34-104) 07/12/18 16:55 Total Creatine Kinase 246 U/L (10-223) H 07/12/18 16:55 Total Protein 7.4 g/dL (6.4-8.9) 07/12/18 16:55 Albumin 4.2 g/dL (3.2-5.2) 07/12/18 16:55 Globulin 3.2 g/dL (2-4) 07/12/18 16:55 Albumin/Globulin Ratio 1.3 (1-3) 07/12/18 16:55 TSH 2.74 mcIU/mL (0.34-5.60) 07/12/18 16:55 Beta HCG, Quant < 0.60 mIU/mL 07/12/18 16:55 Urine Color Straw 07/12/18 16:31 Urine Appearance Clear 07/12/18 16:31 Urine pH 6.0 (5-9) 07/12/18 16:31 Ur Specific [place] 1.006 (1.010-1.030) L 07/12/18 16:31 Urine Protein Negative (Negative) 07/12/18 16:31 Urine Ketones Negative (Negative) 07/12/18 16:31 Urine Blood Negative (Negative) 07/12/18 16:31 Urine Nitrate Negative (Negative) 07/12/18 16:31 Urine Bilirubin Negative (Negative) 07/12/18 16:31 Urine Urobilinogen Negative (Negative) 07/12/18 16:31 Ur Leukocyte Esterase Negative (Negative) 07/12/18 16:31 Urine Glucose Negative (Negative) 07/12/18 16:31 Salicylates < 2.50 mg/dL (<30) 07/12/18 16:55 Urine Opiates Screen None detected (None Detect) 07/12/18 16:31 Acetaminophen < 15 mcg/mL 07/12/18 16:55 Ur Barbiturates Screen None detected (None Detect) 07/12/18 16:31 Ur Phencyclidine Scrn None detected (None Detect) 07/12/18 16:31 Ur Amphetamines Screen None detected (None Detect) 07/12/18 16:31 U Benzodiazepines Scrn None detected (None Detect) 07/12/18 16:31 Urine Cocaine Screen None detected (None Detect) 07/12/18 16:31 U Cannabinoids Screen None detected (None Detect) 07/12/18 16:31 Serum Alcohol < 10 mg/dL (<10) 07/12/18 16:55 Continued Medication Management: Continue Outpt Medication Medications: Current Medications Acetaminophen (Tylenol Tab*) 650 mg PO Q4H PRN PRN Reason: PAIN or TEMP > 101 F Al Hydrox/Mg Hydrox/Simethicone (Maalox Plus*) 30 ml PO Q4H PRN PRN Reason: INDIGESTION Hydroxyzine HCl (Atarax Tab*) 25 mg PO Q6H PRN PRN Reason: ANXIETY Last Admin: 07/18/18 08:33 Dose: 25 mg Ibuprofen (Motrin Tab*) 600 mg PO Q6H PRN PRN Reason: PAIN Last Admin: 07/17/18 18:10 Dose: 600 mg Mirtazapine (Remeron Tab*) 15 mg PO BEDTIME [facility] Last Admin: 07/17/18 20:15 Dose: 15 mg Multivitamins (Theragran Tab*) 1 tab PO DAILY [facility] Last Admin: 07/18/18 08:33 Dose: 1 tab Quetiapine Fumarate (Seroquel Tab*) 150 mg PO BEDTIME [facility] Last Admin: 07/17/18 20:14 Dose: 150 mg Venlafaxine HCl (Effexor Xr Cap*) 37.5 mg PO DAILY [facility] Last Admin: 07/18/18 08:33 Dose: 37.5 mg Venlafaxine HCl (Effexor Xr Cap*) 75 mg PO DAILY [facility] Last Admin: 07/18/18 08:33 Dose: 75 mg - Discharge Plan Discharge Plan: Inpatient Hospitalization
[2018-07-18] MEDS: Ibuprofen TAB* 600 MG PO PRN ×2 (12:20→20:36)
[2018-07-18] MEDS: Mirtazapine TAB* 15 MG PO SCH (20:37)
[2018-07-18] MEDS: QUEtiapine TAB* 100 MG PO SCH (21:47)
[2018-07-19] MEDS: Ibuprofen TAB* 600 MG PO PRN ×2 (08:49→15:52)
[2018-07-19] MEDS: hydrOXYzine HCL TAB* 25 MG PO PRN ×2 (08:50→15:52)
[2018-07-19] MEDS: Vitamin THERAPEUTIC TAB PO SCH (08:50)
[2018-07-19] MEDS: Venlafaxine EXT RELEASE CAP* 75 MG PO SCH (08:50)
[2018-07-19] MEDS: QUEtiapine TAB* 100 MG PO SCH (19:46)
[2018-07-19] MEDS: Mirtazapine TAB* 15 MG PO SCH (19:46)
[2018-07-20] MEDS: Venlafaxine EXT RELEASE CAP* 75 MG PO SCH (08:40)
[2018-07-20] MEDS: hydrOXYzine HCL TAB* 25 MG PO PRN ×2 (08:40→20:22)
[2018-07-20] MEDS: Vitamin THERAPEUTIC TAB PO SCH (08:40)
[2018-07-20] MEDS: Ibuprofen TAB* 600 MG PO PRN ×2 (08:40→20:21)
[2018-07-20] MEDS: diPHENhydraMINE PO* 25 MG PO PRN ×2 (14:10→20:22)
--- NOTE | 2018-07-20 16:40 | PN ---
Subjective - Subjective Date of Service: 07/20/18 Service Type: 38342 Hosp care 25 min moderate complexity Subjective: Danielle appears to be doing well and didn't have any psychiatric complaints. He is worried about seeing a new psychiatrist after discharge. Otherwise denies severe depressive, manic or any psychotic symptoms. Says she is happy that she didn't end up with the suicide attempt. Agreeable with discharge plan. Objective - General Observations Appearance: Well Groomed Stature: Overweight Posture: WNL Eye Contact: Average Behavior/Activity: WNL - Interaction Observations Attitude Towards Examiner: Cooperative Stated Mood: Euthymic Affect: Restricted Speech Pattern/Tone: Clear, Appropriate, Normal Volume Thought Process: Coherent, Goal Directed Perception: WNL Thought Content: WNL Hallucination Type: None Delusion Type: None - Cognitive Function Orientation: A&O x 4 Level of Consciousness: Awake, Alert, Appropriate Cognition: WNL Estimated Intelligence: Normal Insight: WNL Judgment Within Normal Limits: Yes Ability to Make Reasonable Decisions: Mildly Impaired - Medication Compliance Cooperative with Inpatient Medication Regimen: Yes - Group Participation Participates in Group Activities: Yes Assessment - Assessment Merits Inpatient Hospitalization: Consolidate Improvements, Pending Safe DC Plan Clinical Impression: 28 year old female with recent suicide attempt of ingesting two bottles of pills with lethal intent Plan - Plan Treatment Plan: Name: DANIELLE ARAUJO Birthdate: 1990 [id number] Plan Q30 and Staff pass # The patient requires inpatient admission at this time to assure safety, receive treatment and work toward stabilization. # B-HCG results are negative. # Husbands # [phone] release was signed. # Collaboration with Social Work to assist with disposition and after care. #MMPI #Continue seroquel 150mg at night #Message left for outpatient prescriber Dr. Benavides [phone] # Continue effexor 150 mg daily and remeron 15 mg at night. # Family meeting and confirmed she is at her baseline and is in agreement with discharge Saturday # Showed mild improvement of affect Tentative Discharge Saturday Vital Signs Temp Pulse Resp BP Pulse Ox 96.4 F 96 16 120/61 100 07/18/18 07:32 07/18/18 07:32 07/18/18 07:32 07/18/18 07:32 07/18/18 07:32 Laboratory Results WBC 8.9 10^3/uL (3.5-10.8) 07/17/18 08:43 RBC 5.40 10^6 /uL (3.70-4.87) H 07/17/18 08:43 Hgb 13.3 g/dL (12.0-16.0) 07/17/18 08:43 Hct 41 % (35-47) 07/17/18 08:43 MCV 76 fL (80-97) L 07/17/18 08:43 MCH 25 pg (27-31) L 07/17/18 08:43 MCHC 32 g/dL (31-36) 07/17/18 08:43 RDW 16 % (10.5-15) H 07/17/18 08:43 Plt Count 280 10^3/uL (150-450) 07/17/18 08:43 MPV 7.9 fL (7.4-10.4) 07/17/18 08:43 Neut % (Auto) 69.9 % 07/17/18 08:43 Lymph % (Auto) 24.2 % 07/17/18 08:43 [place] % (Auto) 3.5 % 07/17/18 08:43 Eos % (Auto) 1.7 % 07/17/18 08:43 Baso % (Auto) 0.7 % 07/17/18 08:43 Absolute Neuts (auto) 6.2 10^3/ul (1.5-7.7) 07/17/18 08:43 Absolute Lymphs (auto) 2.2 10^3/ul (1.0-4.8) 07/17/18 08:43 Absolute Monos (auto) 0.3 10^3/ul (0-0.8) 07/17/18 08:43 Absolute Eos (auto) 0.2 10^3/ul (0-0.6) 07/17/18 08:43 Absolute Basos (auto) 0.1 10^3/ul (0-0.2) 07/17/18 08:43 Absolute Nucleated RBC 0 10^3/ul 07/17/18 08:43 Nucleated RBC % 0 07/17/18 08:43 Sodium 137 mmol/L (135-145) 07/15/18 06:52 Potassium 4.1 mmol/L (3.5-5.0) 07/15/18 06:52 Chloride 105 mmol/L (101-111) 07/15/18 06:52 Carbon Dioxide 25 mmol/L (22-32) 07/15/18 06:52 Anion Gap 7 mmol/L (2-11) 07/15/18 06:52 BUN 12 mg/dL (6-24) 07/15/18 06:52 Creatinine 0.82 mg/dL (0.51-0.95) 07/15/18 06:52 Est GFR ( Amer) 101.2 (>60) 07/15/18 06:52 Est GFR (Non-Af Amer) 83.6 (>60) 07/15/18 06:52 BUN/Creatinine Ratio 14.6 (8-20) 07/15/18 06:52 Glucose 99 mg/dL (70-100) 07/15/18 06:52 Lactic Acid 1.0 mmol/L (0.5-2.0) 07/12/18 16:55 Calcium 8.9 mg/dL (8.6-10.3) 07/15/18 06:52 Magnesium 1.9 mg/dL (1.9-2.7) 07/17/18 08:43 Total Bilirubin 0.20 mg/dL (0.2-1.0) 07/12/18 16:55 AST 19 U/L (13-39) 07/12/18 16:55 ALT 18 U/L (7-52) 07/12/18 16:55 Alkaline Phosphatase 89 U/L (34-104) 07/12/18 16:55 Total Creatine Kinase 246 U/L (10-223) H 07/12/18 16:55 Total Protein 7.4 g/dL (6.4-8.9) 07/12/18 16:55 Albumin 4.2 g/dL (3.2-5.2) 07/12/18 16:55 Globulin 3.2 g/dL (2-4) 07/12/18 16:55 Albumin/Globulin Ratio 1.3 (1-3) 07/12/18 16:55 TSH 2.74 mcIU/mL (0.34-5.60) 07/12/18 16:55 Beta HCG, Quant < 0.60 mIU/mL 07/12/18 16:55 Urine Color Straw 07/12/18 16:31 Urine Appearance Clear 07/12/18 16:31 Urine pH 6.0 (5-9) 07/12/18 16:31 Ur Specific [place] 1.006 (1.010-1.030) L 07/12/18 16:31 Urine Protein Negative (Negative) 07/12/18 16:31 Urine Ketones Negative (Negative) 07/12/18 16:31 Urine Blood Negative (Negative) 07/12/18 16:31 Urine Nitrate Negative (Negative) 07/12/18 16:31 Urine Bilirubin Negative (Negative) 07/12/18 16:31 Urine Urobilinogen Negative (Negative) 07/12/18 16:31 Ur Leukocyte Esterase Negative (Negative) 07/12/18 16:31 Urine Glucose Negative (Negative) 07/12/18 16:31 Salicylates < 2.50 mg/dL (<30) 07/12/18 16:55 Urine Opiates Screen None detected (None Detect) 07/12/18 16:31 Acetaminophen < 15 mcg/mL 07/12/18 16:55 Ur Barbiturates Screen None detected (None Detect) 07/12/18 16:31 Ur Phencyclidine Scrn None detected (None Detect) 07/12/18 16:31 Ur Amphetamines Screen None detected (None Detect) 07/12/18 16:31 U Benzodiazepines Scrn None detected (None Detect) 07/12/18 16:31 Urine Cocaine Screen None detected (None Detect) 07/12/18 16:31 U Cannabinoids Screen None detected (None Detect) 07/12/18 16:31 Serum Alcohol < 10 mg/dL (<10) 07/12/18 16:55 Continued Medication Management: Continue Outpt Medication Medications: Current Medications Acetaminophen (Tylenol Tab*) 650 mg PO Q4H PRN PRN Reason: PAIN or TEMP > 101 F Al Hydrox/Mg Hydrox/Simethicone (Maalox Plus*) 30 ml PO Q4H PRN PRN Reason: INDIGESTION Diphenhydramine HCl (Benadryl Po*) 25 mg PO Q6H PRN PRN Reason: ALLERGIES Last Admin: 07/20/18 14:10 Dose: 25 mg Hydroxyzine HCl (Atarax Tab*) 25 mg PO Q6H PRN PRN Reason: ANXIETY Last Admin: 07/20/18 08:40 Dose: 25 mg Ibuprofen (Motrin Tab*) 600 mg PO Q6H PRN PRN Reason: PAIN Last Admin: 07/20/18 08:40 Dose: 600 mg Mirtazapine (Remeron Tab*) 15 mg PO BEDTIME PATI Last Admin: 07/19/18 19:46 Dose: 15 mg Multivitamins (Theragran Tab*) 1 tab PO DAILY [facility] Last Admin: 07/20/18 08:40 Dose: 1 tab Quetiapine Fumarate (Seroquel Tab*) 150 mg PO BEDTIME PATI Last Admin: 07/19/18 19:46 Dose: 150 mg Venlafaxine HCl (Effexor Xr Cap*) 150 mg PO DAILY [facility] Last Admin: 07/20/18 08:40 Dose: 150 mg - Discharge Plan Discharge Plan: Outpatient Follow Up Outpatient Program: [facility]
[2018-07-20] MEDS: Mirtazapine TAB* 15 MG PO SCH (20:20)
[2018-07-20] MEDS: QUEtiapine TAB* 100 MG PO SCH (20:22)
[2018-07-21] MEDS: Vitamin THERAPEUTIC TAB PO SCH (08:52)
[2018-07-21] MEDS: hydrOXYzine HCL TAB* 25 MG PO PRN (08:52)
[2018-07-21] MEDS: Venlafaxine EXT RELEASE CAP* 75 MG PO SCH (08:52)
[2018-07-21] MEDS: diPHENhydraMINE PO* 25 MG PO PRN (08:52)
[2018-07-21] MEDS: Ibuprofen TAB* 600 MG PO PRN (08:53)
[2018-07-21 09:24] VITALS: BP 120/81
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
== END 2018-07-21 11:50 | disposition home or self-care (01) | DRG 754 ==
LOC: ED 16:04 → ICU 16:43 → MEDTELE 07-13 07:58 → BSU 07-14 18:50
PROVIDERS: ADMIT Internal Medicine; ATTEND Psychiatry & Neurology Psychiatry
DX: F32.9 Major depressive disorder, single episode, unspecified (principal); T43.292A Poisoning by other antidepressants, intentional self-harm, initial encounter; T44.7X2A Poisoning by beta-adrenoreceptor antagonists, intentional self-harm, initial encounter; F43.10 Post-traumatic stress disorder, unspecified; F60.3 Borderline personality disorder; J45.909 Unspecified asthma, uncomplicated; F42.9 Obsessive-compulsive disorder, unspecified; E28.2 Polycystic ovarian syndrome; Z79.899 Other long term (current) drug therapy; Y92.9 Unspecified place or not applicable; Z81.1 Family history of alcohol abuse and dependence; Z81.8 Family history of other mental and behavioral disorders; Z79.1 Long term (current) use of non-steroidal anti-inflammatories (NSAID); Z91.030 Bee allergy status; Z91.010 Allergy to peanuts; Z88.8 Allergy status to other drugs, medicaments and biological substances; Z91.018 Allergy to other foods
CPT/HCPCS: 36415; 71045; 80048; 80053; 80307; 80320; 80329; 81003; 82550; 83605; 83735; 84443; 84702; 85025; 87641; 93005; 99222; 99232; 99233; 99238; 99285; A9270-GY; G0480; J2405

== ENCOUNTER 2019-01-14 10:12 | Emergency (ER) | payer OTHER ==
[2019-01-14] MEDS ORDERED: Albuterol 2.5 MG/3 ML NEB.SOL* (0.083%) INH ONE ×2 (10:17→10:19)
[2019-01-14] MEDS ORDERED: Famotidine IV* 10 MG/ML 2 ML (20 mg) IV SLOW PU ONE (10:17)
[2019-01-14] MEDS ORDERED: methylPREDNISolone 125 MG* 2 ML VIAL IV ONE (10:17)
[2019-01-14] MEDS ORDERED: Famotidine IV* 10 MG/ML 2 ML (20 mg) ONE (10:18)
[2019-01-14] MEDS ORDERED: NS 0.9% 1000 ML** 1,000 ML IV ONE (10:18)
[2019-01-14] MEDS ORDERED: diPHENhydraMINE IV* 50 MG/ML 1 ml VIAL (BENADRYL) IV ONE (10:18)
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
--- OUTSIDE RECORDS SUMMARY | 2019-01-14 10:41 | XMS REPORT | Continuity of Care Document ---
:1990 External Reference #:[id number] Author Name Eric Medellin MD (transmitted by agent of provider Abby Burroughs) Address [address] [place] [address] Care Team Providers Name Role Phone Eric Medellin MD - Sports Care Team Information Pediatric Acute Care Unit Nurse [phone] Medicine Wadlemar Yancey MD - Family Medicine Care Team Information Pediatric Acute Care Unit Nurse Problems Description No Information Available Social History Type Date Description Comments Sex Unknown Tobacco Use Start: Unknown Never Smoked Cigarettes Smoking Status Reviewed: 12/15/18 Never Smoked Cigarettes ETOH Use Drinks Alcoholic Beverages Occasionally ETOH Use Denies alcohol use Tobacco Use Start: Unknown Patient has never smoked Recreational Drug Use Denies Drug Use Exercise Type/Frequency Exercises regularly Allergies, Adverse Reactions, Alerts Active Allergies Reaction Severity Comments Date Bee Sting 11/11/2017 Fentanyl Anaphylaxis, Nausea and 11/11/2017 Vomiting Kiwi 11/11/2017 Bren 11/11/2017 Peanut-containing Drug 01/13/2018 Products Medications Active Medications SIG Qnty Indications Ordering Provider Date Epipen 2-Ronny use as directed Unknown 0.3mg/0.3ML Solution Auto-Inject Gabapentin 1 capsule three Unknown 100mg times daily. Capsules Effexor XR 1 by mouth every Unknown 75mg Caps ER day 24HR Ibuprofen 2 tablets twice Unknown 200mg Tablets daily as needed Medications Administered in Office Medication SIG Qnty Indications Ordering Provider Date Records Fee Eric Medellin MD 07/23/2018 Injection Depomedrol 80MG Jorge Gonzales M.D. 02/16/2010 Injection Immunizations Description No Information Available Vital Signs Date Vital Result Comment 12/15/2018 7:52am Height 69 inches 5'9" Weight 262.50 lb Heart Rate 93 /min BP Systolic Sitting 124 mmHg BP Diastolic Sitting 84 mmHg Body Temperature 96.1 F BMI (Body Mass Index) 38.8 kg/m2 02/17/2018 8:16am Height 69 inches 5'9" Weight 252.12 lb clothes and shoes on Heart Rate 98 /min BP Systolic Sitting 122 mmHg BP Diastolic Sitting 78 mmHg Body Temperature 98.0 F O2 % BldC Oximetry 98 % BMI (Body Mass Index) 37.2 kg/m2 Results Description No Information Available Procedures Date Code Description Status 07/13/2018 86603 EKG, Interpretation Only Completed Medical Devices Description No Information Available Encounters Type Date Location Provider Dx Diagnosis Office Visit 07/15/2018 [facility] Vicente Powell T43.202A Poisoning by 10:07a blair Escobedo M.D.,FACP unsp Hospitalists antidepressants, self-harm, init F33.9 Major depressive disorder, recurrent, unspecified F43.10 Post-traumatic stress disorder, unspecified Office 07/14/2018 [facility] Vicente Powell T43.202A Poisoning by unsp Visit 10:06a blair Escobedo, rishabh, Hospitalists Manuel,FACP self-harm, init T88.7xxA Unsp adverse effect of drug or medicament, init encntr Office Visit 07/13/2018 [facility] Vicente Powell R00.1 Bradycardia, 10:06a blair Escobedo M.D.,FACP unspecified Hospitalists T43.202A Poisoning by unsp antidepressants, self-harm, init Office Visit 07/12/2018 [facility] Nathan Roman, T43.202A Poisoning by unsp 10:05a blair Escobedo MD antidepressants, Hospitalists self-harm, init F32.9 Major depressive disorder, single episode, unspecified F43.10 Post-traumatic stress disorder, unspecified Assessments Date Code Description Provider 12/15/2018 M25.562 Pain in left knee Eric Medellin MD 07/23/2018 Z11.51 Encounter for screening for human Eric Medellin MD papillomavirus (HPV) 07/15/2018 T43.202A Poisoning by unsp antidepressants, Vicente Murray M.D.,FACP self-harm, init 07/15/2018 F33.9 Major depressive disorder, recurrent, Vicente Murray M.D.,FACP unspecified 07/15/2018 F43.10 Post-traumatic stress disorder, Vicente Murray M.D., FACP unspecified 07/14/2018 T43.202A Poisoning by unsp antidepressants, Vicente Murray M.D.,FACP self-harm, init 07/14/2018 T88.7xxA Unsp adverse effect of drug or Vicente Murray M.D., FACP medicament, init encntr 07/13/2018 R94.31 Abnormal electrocardiogram [ECG] Gerardo Chen M.D., [EKG] [facility] 07/13/2018 R00.1 Bradycardia, unspecified Vicente Murray M.D.,FACP 07/13/2018 T43.202A Poisoning by unsp antidepressants, Vicente Murray M.D.,FACP self-harm, init 07/12/2018 T43.202A Poisoning by unsp antidepressants, Nathan Roman MD self-harm, init 07/12/2018 F32.9 Major depressive disorder, single Nathan Roman MD episode, unspecified 07/12/2018 F43.10 Post-traumatic stress disorder, Nathan Roman MD unspecified Plan of Treatment Future Appointment(s):02/16/2019 7:30 am - Eric Medellin MD at [facility] [place]/30/2019 - Eric Medellin, MDM25.562 Pain in left kneeNew Therapy:Physical TherapyFollow up:Follow up: Functional Status Description No Information Available Mental Status Description No Information Available Referrals Description No Information Available
[2019-01-14 13:29] VITALS: BP 111/58
== END 2019-01-14 13:28 | disposition home or self-care (01) ==
LOC: ED 10:12
DX: T78.40XA Allergy, unspecified, initial encounter (principal); X58.XXXA Exposure to other specified factors, initial encounter; Y92.9 Unspecified place or not applicable; E11.9 Type 2 diabetes mellitus without complications; D64.9 Anemia, unspecified; F41.9 Anxiety disorder, unspecified; F32.9 Major depressive disorder, single episode, unspecified; F43.10 Post-traumatic stress disorder, unspecified; Z79.899 Other long term (current) drug therapy; Z88.5 Allergy status to narcotic agent
CPT/HCPCS: 96361; 96374; 96375; 99283